=== PATIENT | female | born 1970 | race African-American/Black ===

== ENCOUNTER 2017-05-19 19:52 | Emergency (ER) | payer SELFPAY ==
[2017-05-19 20:24] LABS: URINE HCG POC HCG NEGATIVE (Negative)
[2017-05-19 20:28] LABS: ADD MAN DIFF? NO
[2017-05-19 20:38] LABS: BASO % 1 % (0-3); EOS # 0.1 x10^3/uL (0.0-0.7); EOS % 1 % (0-3); HEMATOCRIT 31.1 % (36.0-47.0); LYMPH # 1.7 x10^3/uL (1.0-4.8); LYMPH % 26 % (24-48); MEAN CORPUSCULAR HEMOGLOBIN 28 pg (25-35); MEAN CORPUSCULAR HGB CONC 32 g/dL (31-37); MEAN CORPUSCULAR VOLUME 88 fL (79-100); MONO # 0.6 x10^3/uL (0.0-1.1); MONO % 9 % (0-9); NEUT # 4.2 x10^3uL (1.8-7.7); NEUT % 64 % (31-73); PLATELET COUNT 340 x10^3/uL (140-400); RED BLOOD COUNT 3.53 x10^6/uL (3.50-5.40); RED CELL DISTRIBUTION WIDTH 20.9 % (11.5-14.5); WHITE BLOOD COUNT 6.5 x10^3/uL (4.0-11.0)
[2017-05-19 20:40] LABS: BARBITURATES NEG (NEG); BENZODIAZEPINES NEG (NEG); CANNABINOIDS NEG (NEG); COCAINE NEG (NEG); METHADONE NEG (NEG); OPIATES NEG (NEG); PHENCYCLIDINE NEG (NEG)
[2017-05-19 20:43] LABS: AMPHETAMINE/METHAMPHETAMINE POS (NEG); ETHANOL, URINE POS (NEG)
[2017-05-19 20:45] LABS: ETHANOL 251 mg/dL (0-10)
[2017-05-19 20:46] LABS: ANION GAP 11 (6-14); BLOOD UREA NITROGEN 9 mg/dL (7-20); BUN/CREATININE RATIO 18 (6-20); CALCIUM 7.6 mg/dL (8.5-10.1); CARBON DIOXIDE 28 mmol/L (21-32); CHLORIDE 101 mmol/L (98-107); CREATININE 0.5 mg/dL (0.6-1.0); GFR 162.2; GLUCOSE 143 mg/dL (70-99); POTASSIUM 3.5 mmol/L (3.5-5.1); SODIUM 140 mmol/L (136-145)
[2017-05-19 20:49] LABS: ALBUMIN 2.5 g/dL (3.4-5.0); ALBUMIN/GLOBULIN RATIO 0.5 (1.0-1.7); ALK PHOS 426 U/L (46-116); ALT (SGPT) 89 U/L (14-59); AST (SGOT) 528 U/L (15-37); TOTAL BILIRUBIN 1.4 mg/dL (0.2-1.0); TOTAL PROTEIN 7.6 g/dL (6.4-8.2)
[2017-05-19 20:59] LABS: TROPONINI < 0.017 ng/mL (0.000-0.055)
[2017-05-19 20:59] LABS: ANISOCYTOSIS MOD; PLT ESTIMATE ADEQUATE (ADEQUATE); TARGET CELLS MOD
[2017-05-19 21:59] LABS: INFLUENZA A PATIENT NEGATIVE (NEGATIVE); INFLUENZA B PATIENT NEGATIVE (NEGATIVE); OBC FLU VALID
== END 2017-05-19 22:19 | disposition home or self-care (01) ==
LOC: ER 22:19
DX: J40 Bronchitis, not specified as acute or chronic (principal); F10.20 Alcohol dependence, uncomplicated; R74.0 Nonspecific elevation of levels of transaminase and lactic acid dehydrogenase [LDH]; I10 Essential (primary) hypertension; Z72.0 Tobacco use
CPT/HCPCS: 36415; 71046; 80053; 80307; 81025; 84484; 85025; 87804; 87804-59; 93005; 99285-25; G0480

== ENCOUNTER 2018-03-23 16:32 | Emergency (ER) | payer SELFPAY ==
[~2018-03-23] VITALS: Ht 157.5 cm; Wt 74.8 kg
[~2018-03-23 16:32] MED LIST: AZIT250T PO; GABA-585 PO; HYDR12.58 PO; PANT40TA5 PO
[2018-03-23 16:42] VITALS: BP 147/86
--- NOTE | 2018-03-23 17:00 | PHYS DOC ---
Past Medical History Past Medical History: Hypertension, IBS, Pneumonia Past Surgical History: Other Additional Past Surgical Histo: KNEE, CYST REMOVED,tubal ligation Alcohol Use: Heavy Drug Use: None Adult General Chief Complaint Chief Complaint: COUGH HPI HPI Patient is a 47 year old female with history of hypertension, pneumonia, IBS, who presents today complaining of cough that began 4 days ago,a hoarse voice and a sore throat that began today. Patient denies any fever. She states she is a current smoker. Denies any chest pain or shortness of breath. Review of Systems Review of Systems Constitutional: Denies fever or chills [] Eyes: Denies change in visual acuity, redness, or eye pain [] HENT: Reports causes moist, sore throat. Denies nasal congestion Respiratory: Reports cough, denies shortness of breath [] Cardiovascular: No additional information not addressed in HPI [] GI: Denies abdominal pain, nausea, vomiting, bloody stools or diarrhea [] : Denies dysuria or hematuria [] Musculoskeletal: Denies back pain or joint pain [] Integument: Denies rash or skin lesions [] Neurologic: Denies headache, focal weakness or sensory changes [] All other systems were reviewed and found to be within normal limits, except as documented in this note. Allergies Allergies Allergies Coded Allergies Type Severity Reaction Last Updated Verified No Known Drug Allergies 03/28/16 No Physical Exam Physical Exam Constitutional: Well developed, well nourished, no acute distress, non-toxic appearance. [] HENT: Normocephalic, atraumatic, bilateral external ears normal, oropharynx moist, no oral exudates, nose normal. Airway is clear, hoarse voice. Eyes: PERRLA, EOMI, conjunctiva normal, no discharge. [] Neck: Normal range of motion, no tenderness, supple, no stridor. [] Cardiovascular:Heart rate regular rhythm, no murmur [] Lungs & Thorax: Bilateral breath sounds clear to auscultation [] Abdomen: Bowel sounds normal, soft, no tenderness, no masses, no pulsatile masses. [] Skin: Warm, dry, no erythema, no rash. [] Back: No tenderness, no CVA tenderness. [] Extremities: No tenderness, no cyanosis, no clubbing, ROM intact, no edema. [] Neurologic: Alert and oriented X 3, normal motor function, normal sensory function, no focal deficits noted. [] Psychologic: Affect normal, judgement normal, mood normal. [] Current Patient Data Vital Signs Vital Signs Date Time Temp Pulse Resp B/P (MAP) Pulse Ox O2 Delivery O2 Flow Rate FiO2 03/23/18 16:42 98.5 99 16 147/86 (106) 99 Room Air 98.5 EKG EKG [] Radiology/Procedures Radiology/Procedures [] Course & Med Decision Making Course & Med Decision Making Pertinent Labs and Imaging studies reviewed. (See chart for details) This is a 47-year-old female patient presenting to the ED today with cough for 4 days post voice and a sore throat since this morning. Negative rapid strep. Patient is a smoker, she was encouraged to consider smoking cessation. Chest x-ray interpreted by Dr. Silva was negative for any acute findings. Patient likely has bronchitis with laryngitis. He was discharged with instructions to rest her voice. Saltwater gargles. Prednisone and albuterol inhaler and Tessalon Perles. Follow-up with her own PCP in 1-2 weeks. Provided return precautions. Dragon Disclaimer Dragon Disclaimer This electronic medical record was generated, in whole or in part, using a voice recognition dictation system. Departure Departure Impression: Primary Impression: Acute bronchitis Additional Impressions: Laryngitis Viral pharyngitis Disposition: 01 HOME, SELF-CARE Condition: STABLE Referrals: NO PCP (PCP) Follow-up with your doctor in 1-2 weeks Patient Instructions: Bronchitis, Laryngitis, [id number], Smoking Cessation, Viral Pharyngitis Additional Instructions: You were evaluated in the emergency room and noted to have acute bronchitis and laryngitis. Rest your voice. Use Tylenol /Motrin for pain or fever. Use saltwater gargles. Consider smoking cessation. Take the rest of the prescribed medications as ordered. Scripts Albuterol Sulfate (VENTOLIN HFA INHALER) 18 Gm Hfa.aer.ad 2 PUFF INH Q4HRS for FOR ASTHMA, #1 INHALER 0 Refills Prov: MUTUNGASHA PNEUMATIC TUBE FITTER 03/23/18 Benzonatate (TESSALON PERLE) 100 Mg Capsule 1 CAP PO TID, #30 CAP Prov: MUTUNGA,SHA PNEUMATIC TUBE FITTER 03/23/18 Prednisone (PREDNISONE) 50 Mg Tablet 1 TAB PO DAILY, #5 TAB Prov: MUTUNGA,SHA PNEUMATIC TUBE FITTER 03/23/18 Problem Qualifiers Primary Impression: Acute bronchitis Bronchitis organism: unspecified organism Qualified Codes: J20.9 - Acute bronchitis, unspecified SHA BUTLER PNEUMATIC TUBE FITTER Mar 23, 2018 17:00
[2018-03-23] MEDS ORDERED: VENTOLIN HFA18 GM INH (18:00)
[2018-03-23] MEDS ORDERED: PRED50TA PO (18:00)
[2018-03-23] MEDS ORDERED: BENZ100C PO (18:00)
--- NOTE | 2018-03-24 07:58 | RAD ---
CHEST PA LATERAL Clinical indications: COUGH COMPARISON: May 19, 2017. Findings: No acute lung infiltrate or pleural effusion or pulmonary edema or lung mass or pneumothorax is seen. The heart size, pulmonary vasculature, mediastinum and both kylee are unremarkable. The osseous structures appear intact. Impression: No acute radiographic abnormality is seen. Electronically signed by: Laz Hollis MD (03/24/2018 7:54 AM) [facility]
== END 2018-03-23 18:08 | disposition home or self-care (01) ==
LOC: ER 16:32
DX: J20.9 Acute bronchitis, unspecified (principal); J02.8 Acute pharyngitis due to other specified organisms; B97.89 Other viral agents as the cause of diseases classified elsewhere; J04.0 Acute laryngitis; I10 Essential (primary) hypertension; F17.200 Nicotine dependence, unspecified, uncomplicated; F10.20 Alcohol dependence, uncomplicated; Z98.51 Tubal ligation status; Y90.9 Presence of alcohol in blood, level not specified
CPT/HCPCS: 71046; 87070; 87880; 96365; 96375; 99283; 99284-25

== ENCOUNTER 2018-11-04 19:32 | Inpatient (IN) | payer SELFPAY ==
[~2018-11-04] VITALS: Ht 157.5 cm; Wt 77.6 kg
[~2018-11-04 19:32] MED LIST changes: +BENZ100C PO; -PANT40TA5 PO; +PANT40TA77 PO; +PRED50TA PO; +VENTOLIN HFA18 GM INH
--- NOTE | 2018-11-04 19:53 | PHYS DOC ---
Past Medical History Past Medical History: Hypertension, IBS, Pneumonia Past Surgical History: Other Additional Past Surgical Histo: KNEE, CYST REMOVED,tubal ligation Alcohol Use: Occasionally Drug Use: None Adult General Chief Complaint Chief Complaint: CHEST PAIN-CARDIAC NATURE HPI HPI Patient is a 48-year-old female who presents with complaint of chest pain that started 2 days ago that she describes as sharp at times and just tightness at other times. She also has developed shortness of breath that started this morning. She rates that pain at a 5-6 out of 10. Patient states that symptoms are worsened with exertion. She does indicate that she has a history of blood clots in the past and states that she had been on blood thinners for 2 years. She denies being on any hormone therapy but does admit to tobacco use. She denies any nausea, vomiting or diaphoresis. She states that nothing is improving her symptoms.[] Review of Systems Review of Systems Constitutional: Denies fever or chills [] Respiratory: Complains of cough and shortness of breath [] Cardiovascular: No additional information not addressed in HPI [] GI: Denies abdominal pain, nausea, vomiting or diarrhea [] Integument: Denies rash or skin lesions [] Neurologic: Denies headache, focal weakness or sensory changes [] All other systems were reviewed and found to be within normal limits, except as documented in this note. Current Medications Current Medications Current Medications Medications (Trade) Dose Ordered Sig/[facility] Start Time Stop Time Status Last Admin Dose Admin Aspirin (Children'S Aspirin) 324 mg 1X ONCE 11/04/18 20:00 11/04/18 20:01 DC 11/04/18 19:55 324 MG Info (CONTRAST GIVEN -- Rx MONITORING) 1 each PRN DAILY PRN 11/04/18 21:00 11/06/18 20:59 Iohexol (Omnipaque 350 Mg/ml) 100 ml 1X ONCE 11/04/18 21:15 11/04/18 21:16 DC 11/04/18 21:31 100 ML Ketorolac Tromethamine (Toradol 30mg Vial) 30 mg 1X ONCE 11/04/18 20:00 11/04/18 20:01 DC 11/04/18 19:55 30 MG Magnesium Sulfate 50 ml @ 25 mls/hr 1X ONCE 11/04/18 21:00 11/04/18 22:59 DC 11/04/18 21:10 25 MLS/HR Sodium Chloride 1,000 ml @ 1,000 mls/hr Q1H 11/04/18 20:00 11/04/18 20:59 DC 11/04/18 19:55 1,000 MLS/HR Allergies Allergies Allergies Coded Allergies Type Severity Reaction Last Updated Verified No Known Drug Allergies 03/28/16 No Physical Exam Physical Exam Constitutional: Well developed, well nourished, no acute distress, non-toxic jeyson earance. [] HENT: Normocephalic, atraumatic, bilateral external ears normal, oropharynx moist, no oral exudates, nose normal. [] Eyes: PERRLA, EOMI, conjunctiva normal, no discharge. [] Neck: Normal range of motion, no tenderness, supple, no stridor. [] Cardiovascular: Tachycardic rate with regular rhythm[] Lungs & Thorax: Bilateral breath sounds clear to auscultation [] Abdomen: Bowel sounds normal, soft, no tenderness. [] Skin: Warm, dry, no erythema, no rash. [] Extremities: No tenderness, no cyanosis, no clubbing, ROM intact, no edema. [] Neurologic: Alert and oriented X 3, no focal deficits noted. [] Current Patient Data Vital Signs Vital Signs Date Time Temp Pulse Resp B/P (MAP) Pulse Ox O2 Delivery O2 Flow Rate FiO2 11/04/18 19:35 98.5 118 20 129/90 (103) 96 Room Air 98.5 Lab Values Laboratory Tests Test 11/04/18 19:45 11/04/18 20:10 White Blood Count 9.1 x10^3/uL (4.0-11.0) Red Blood Count 3.16 x10^6/uL (3.50-5.40) L Hemoglobin 10.0 g/dL (12.0-15.5) L Hematocrit 28.7 % (36.0-47.0) L Mean Corpuscular Volume 91 fL (79-100) Mean Corpuscular Hemoglobin 32 pg (25-35) Mean Corpuscular Hemoglobin Concent 35 g/dL (31-37) Red Cell Distribution Width 32.2 % (11.5-14.5) H Platelet Count 303 x10^3/uL (140-400) Neutrophils (%) (Auto) 33 % (31-73) Lymphocytes (%) (Auto) 63 % (24-48) H Monocytes (%) (Auto) 3 % (0-9) Eosinophils (%) (Auto) 0 % (0-3) Basophils (%) (Auto) 1 % (0-3) Neutrophils # (Auto) 3.0 x10^3/uL (1.8-7.7) Lymphocytes # (Auto) 5.7 x10^3/uL (1.0-4.8) H Monocytes # (Auto) 0.3 x10^3/uL (0.0-1.1) Eosinophils # (Auto) 0.0 x10^3/uL (0.0-0.7) Basophils # (Auto) 0.0 x10^3/uL (0.0-0.2) Segmented Neutrophils % 77 % (35-66) H Band Neutrophils % 1 % (0-9) Lymphocytes % 10 % (24-48) L Monocytes % 7 % (0-10) Eosinophils % 3 % (0-5) Basophils % 2 % (0-3) Nucleated Red Blood Cells 2 Toxic Granulation Slight Platelet Estimate Adequate (ADEQUATE) Platelet Clumps, EDTA Present Large Platelets Occ Anisocytosis Mod Target Cells Many Schistocytes Occ D-Dimer (Felipa) 3.32 ug/mlFEU (0.00-0.50) H Sodium Level 139 mmol/L (136-145) Potassium Level 3.2 mmol/L (3.5-5.1) L Chloride Level 98 mmol/L (98-107) Carbon Dioxide Level 25 mmol/L (21-32) Anion Gap 16 (6-14) H Blood Urea Nitrogen 4 mg/dL (7-20) L Creatinine 0.6 mg/dL (0.6-1.0) Estimated GFR (Cockcroft-Gault) 130.2 BUN/Creatinine Ratio 7 (6-20) Glucose Level 136 mg/dL (70-99) H Calcium Level 7.2 mg/dL (8.5-10.1) L Magnesium Level 0.9 mg/dL (1.8-2.4) L Total Bilirubin 5.4 mg/dL (0.2-1.0) H Aspartate Amino Transferase (AST) 299 U/L (15-37) H Alanine Aminotransferase (ALT) 39 U/L (14-59) Alkaline Phosphatase 680 U/L (46-116) H Troponin I Quantitative < 0.017 ng/mL (0.000-0.055) ZA-Fxo-X-Type Natriuretic Peptide 30 pg/mL (0-124) Total Protein 7.8 g/dL (6.4-8.2) Albumin 2.5 g/dL (3.4-5.0) L Albumin/Globulin Ratio 0.5 (1.0-1.7) L Lipase 33 U/L (73-393) L Urine Collection Type Unknown Urine Color Clinch Urine Clarity Cloudy Urine pH Urine Specific [place] Urine Protein mg/dL (NEG-TRACE) Urine Glucose (UA) mg/dL (NEG) Urine Ketones (Stick) mg/dL (NEG) Urine Blood (NEG) Urine Nitrite (NEG) Urine Bilirubin (NEG) Urine Urobilinogen Dipstick mg/dL (0.2 mg/dL) Urine Leukocyte Esterase (NEG) Urine RBC 0 /HPF (0-2) Urine WBC Occ /HPF (0-4) Urine Squamous Epithelial Cells Mod /LPF Urine Bacteria Few /HPF (0-FEW) Urine Mucus Mod /LPF Urine Trichomonas Present Laboratory Tests 11/04/18 19:45 Laboratory Tests 11/04/18 19:45 EKG EKG [] Interpretation Time: EKG demonstrates sinus tachycardia with rate of 116. Radiology/Procedures Radiology/Procedures [] Impressions: PROCEDURE: CT ANGIOGRAPHY CHEST INDICATION: Chest pain COMPARISON: None. TECHNIQUE: Axial CT images obtained through the chest. Intravenous contrast utilized. Angiogram 3D images processed per protocol. One or more of the following individualized dose reduction techniques were utilized for this examination: 1. Automated exposure control; 2. Adjustment of the mA and/or kV according to patient size; 3. Use of iterative reconstruction technique. FINDINGS: No evidence of pneumothorax. There are some scattered groundglass and nodular opacities within the lungs. Mild finding. Partially visualized liver is low density. Nonspecific but can be seen with fatty infiltration. This is a severe finding. There is also heterogenous enhancement of liver. Partially visualized colonic wall appears prominent at proximal descending colon although not distended. Patient motion limits exam. Borderline enlarged precarinal lymph node. Portion of a ascending thoracic aorta is obscured by motion but no aneurysm at visualized portions of the thoracic aorta. No central pulmonary embolus. Limited peripherally secondary to motion. Degenerative changes the spine with mild curvature. IMPRESSION: No central pulmonary embolus. Limited peripherally secondary to motion. There is some groundglass and nodular opacities bilaterally. Could be from small airway inflammation from infectious or inflammatory causes but a follow-up could be obtained in a few months to ensure no increase. This is a mild finding. Partially visualized liver appears enlarged and heterogenous. The hepatic parenchyma is very low attenuation. This can be seen with fatty infiltration but would also correlate for other possible causes such as hepatitis. A follow-up nonemergent CT or MRI liver protocol could BE obtained to further evaluate and ensure that there is not a hepatic mass contributing to this appearance. Portion of the colon is partially seen with the wall appearing mildly prominent. Could be secondary to a region of contraction unless the patient has symptoms in the region to suggest alternative cause such as colitis Electronically signed by: Bennett Schrader MD (11/04/2018 10:52 PM) [facility] DICTATED and SIGNED BY: BENNETT SCHRADER MD DATE: 11/04/182251 PROCEDURE: ABDOMEN LTD INDICATION : Chest pain COMPARISON: CT chest earlier same day TECHNIQUE: Multiple ultrasound images obtained through the abdomen in grayscale and color. FINDINGS: Liver: Echogenic appearance. Poor beam penetration therefore portions not well seen. Heterogenous. Gallbladder: Somewhat distended with wall measuring up to 6 mm. There is some internal echoes. IVC: Difficult visualization. Common Bile Duct: 5 mm Pancreas: Largely obscured by bowel gas. Right Kidney: No hydronephrosis. IMPRESSION: 1. Liver is echogenic. Nonspecific but can be seen with fatty infiltration. Heterogenous appearance of the liver with large portions not well seen secondary to poor beam penetration. Cannot exclude liver lesion on this exam. Gallbladder somewhat distended with wall thickening. This wall thickening could be reactive to adjacent hepatic disease, primary gallbladder inflammation or a systemic process such as hypoproteinemia. If there is clinical concern for acute cholecystitis and further information is desired nuclear hepatobiliary scan could BE obtained. Electronically signed by: Bennett Schrader MD (11/04/2018 11:11 PM) [facility] DICTATED and SIGNED BY: BENNETT SCHRADRE MD Course & Med Decision Making Course & Med Decision Making Pertinent Labs and Imaging studies reviewed. (See chart for details) [] Dragon Disclaimer Dragon Disclaimer This electronic medical record was generated, in whole or in part, using a voice recognition dictation system. Departure Departure Impression: Primary Impression: Chest pain Additional Impressions: Dyspnea Hyperbilirubinemia Elevated transaminase level Disposition: ADMITTED INPATIENT Admitting Physician: SUMEET Condition: IMPROVED Referrals: NO PCP (PCP) Problem Qualifiers Primary Impression: Chest pain Chest pain type: unspecified Qualified Codes: R07.9 - Chest pain, unspecified Additional Impressions: Dyspnea Dyspnea type: unspecified Qualified Codes: R06.00 - Dyspnea, unspecified MAURICE BROOKS Jr. DO Nov 04, 2018 19:53
[2018-11-04] MEDS ORDERED: ASPIRIN CHEWABLE 81 MG TABLET. PO ONE (20:00)
[2018-11-04] MEDS ORDERED: IV NORMAL SALINE 1000ML BAG 1,000 ML IV SCH ×2 (20:00→23:55)
[2018-11-04] MEDS ORDERED: KETOROLAC 30 MG/ML VIAL. IV ONE (20:00)
[2018-11-04 20:02] LABS: BASO % 1 % (0-3); EOS % 0 % (0-3); HEMATOCRIT 28.7 % (36.0-47.0); LYMPH # 5.7 x10^3/uL (1.0-4.8); LYMPH % 63 % (24-48); MEAN CORPUSCULAR HEMOGLOBIN 32 pg (25-35); MEAN CORPUSCULAR HGB CONC 35 g/dL (31-37); MEAN CORPUSCULAR VOLUME 91 fL (79-100); MONO # 0.3 x10^3/uL (0.0-1.1); MONO % 3 % (0-9); NEUT % 33 % (31-73); PLATELET COUNT 303 x10^3/uL (140-400); RED BLOOD COUNT 3.16 x10^6/uL (3.50-5.40); RED CELL DISTRIBUTION WIDTH 32.2 % (11.5-14.5); WHITE BLOOD COUNT 9.1 x10^3/uL (4.0-11.0)
[2018-11-04 20:17] LABS: CALCIUM 7.2 mg/dL (8.5-10.1); CREATININE 0.6 mg/dL (0.6-1.0); GFR 130.2; POTASSIUM 3.2 mmol/L (3.5-5.1)
[2018-11-04 20:22] LABS: CLARITY,URINE CLOUDY; COLOR,URINE ORANGE
[2018-11-04 20:23] LABS: ALBUMIN 2.5 g/dL (3.4-5.0); ALBUMIN/GLOBULIN RATIO 0.5 (1.0-1.7); MAGNESIUM 0.9 mg/dL (1.8-2.4); TOTAL BILIRUBIN 5.4 mg/dL (0.2-1.0); TOTAL PROTEIN 7.8 g/dL (6.4-8.2)
[2018-11-04 20:54] LABS: BACTERIA,URINE FEW /HPF (0-FEW); RBC,URINE 0 /HPF (0-2); SQUAMOUS EPITHELIAL CELL,UR MOD /LPF; WBC,URINE OCC /HPF (0-4)
[2018-11-04 20:55] LABS: TRICHOMONAS,URINE PRESENT
[2018-11-04] MEDS ORDERED: CONTRAST GIVEN. MC PRN (21:00)
[2018-11-04] MEDS ORDERED: MAGNESIUM SULFATE 2GM 50 ML IV ONE (21:00)
[2018-11-04 21:01] LABS: % BANDS 1 % (0-9); % BASOS 2 % (0-3); % EOS 3 % (0-5); % LYMPHS 10 % (24-48); % MONOS 7 % (0-10); % SEGS 77 % (35-66)
[2018-11-04 21:02] LABS: ANISOCYTOSIS MOD; NUCLEATED RBC 2
[2018-11-04 21:03] LABS: PLATELET CLUMP PRESENT; PLT ESTIMATE ADEQUATE (ADEQUATE); SCHISTOCYTES OCC; TARGET CELLS MANY; TOXIC GRANULATION SLIGHT
[2018-11-04] MEDS ORDERED: IOHEXOL 350 MG/ML 100 ML VIAL. IV ONE (21:15)
--- NOTE | 2018-11-04 22:55 | RAD ---
INDICATION: Chest pain COMPARISON: None. TECHNIQUE: Axial CT images obtained through the chest. Intravenous contrast utilized. Angiogram 3D images processed per protocol. One or more of the following individualized dose reduction techniques were utilized for this examination: 1. Automated exposure control; 2. Adjustment of the mA and/or kV according to patient size; 3. Use of iterative reconstruction technique. FINDINGS: No evidence of pneumothorax. There are some scattered groundglass and nodular opacities within the lungs. Mild finding. Partially visualized liver is low density. Nonspecific but can be seen with fatty infiltration. This is a severe finding. There is also heterogenous enhancement of liver. Partially visualized colonic wall appears prominent at proximal descending colon although not distended. Patient motion limits exam. Borderline enlarged precarinal lymph node. Portion of a ascending thoracic aorta is obscured by motion but no aneurysm at visualized portions of the thoracic aorta. No central pulmonary embolus. Limited peripherally secondary to motion. Degenerative changes the spine with mild curvature. IMPRESSION: No central pulmonary embolus. Limited peripherally secondary to motion. There is some groundglass and nodular opacities bilaterally. Could be from small airway inflammation from infectious or inflammatory causes but a follow-up could be obtained in a few months to ensure no increase. This is a mild finding. Partially visualized liver appears enlarged and heterogenous. The hepatic parenchyma is very low attenuation. This can be seen with fatty infiltration but would also correlate for other possible causes such as hepatitis. A follow-up nonemergent CT or MRI liver protocol could BE obtained to further evaluate and ensure that there is not a hepatic mass contributing to this appearance. Portion of the colon is partially seen with the wall appearing mildly prominent. Could be secondary to a region of contraction unless the patient has symptoms in the region to suggest alternative cause such as colitis Electronically signed by: Jl Schrader MD (11/04/2018 10:52 PM) [facility]
--- NOTE | 2018-11-04 23:14 | RAD ---
INDICATION : Chest pain COMPARISON: CT chest earlier same day TECHNIQUE: Multiple ultrasound images obtained through the abdomen in grayscale and color. FINDINGS: Liver: Echogenic appearance. Poor beam penetration therefore portions not well seen. Heterogenous. Gallbladder: Somewhat distended with wall measuring up to 6 mm. There is some internal echoes. IVC: Difficult visualization. Common Bile Duct: 5 mm Pancreas: Largely obscured by bowel gas. Right Kidney: No hydronephrosis. IMPRESSION: 1. Liver is echogenic. Nonspecific but can be seen with fatty infiltration. Heterogenous appearance of the liver with large portions not well seen secondary to poor beam penetration. Cannot exclude liver lesion on this exam. Gallbladder somewhat distended with wall thickening. This wall thickening could be reactive to adjacent hepatic disease, primary gallbladder inflammation or a systemic process such as hypoproteinemia. If there is clinical concern for acute cholecystitis and further information is desired nuclear hepatobiliary scan could BE obtained. Electronically signed by: Jl Schrader MD (11/04/2018 11:11 PM) [facility]
[2018-11-05] VITALS (7 sets, daily range): BP systolic 100–145; BP diastolic 63–95
[2018-11-05] MEDS ORDERED: NITROGLYCERIN SUBLINGUAL 0.4 MG BOTTLE OF 25. SL PRN
[2018-11-05] MEDS ORDERED: ONDANSETRON PF 4 MG/2 ML VIAL. IV PRN
[2018-11-05] MEDS: MORPHINE SULFATE 4 MG/ML VIAL. IV PRN ×7 (00:32→23:17)
[2018-11-05] MEDS ORDERED: SENN8.6T99 PO (01:32)
[2018-11-05] MEDS ORDERED: IBUP-1027 PO (01:32)
[2018-11-05] MEDS ORDERED: SIME62.5 PO (01:32)
[2018-11-05] MEDS ORDERED: CALC300T5 PO (01:32)
--- NOTE | 2018-11-05 05:59 | EKG ---
[facility] [address] [place] [address] Test Date: 2018-11-04 Test Time: 19:37:14 Pat Name: KIMBERLY DOZIER Department: Room: Gender: F Cruise Coordinator: : 1970 Requested By: MAURICE BROOKS Order Number: [id number] Reading MD: Measurements Intervals [place] Rate: 116 P: 56 W[place]: 118 QRS: 26 QRSD: 90 T: 60 QT: 342 QTc: 482 Interpretive Statements SINUS TACHYCARDIA CONSIDER RIGHT VENTRICULAR HYPERTROPHY QRS(T) CONTOUR ABNORMALITY CONSIDER ANTEROLATERAL MYOCARDIAL DAMAGE POSSIBLY ABNORMAL ECG RI6.01 Unconfirmed report No previous ECG available for comparison
[2018-11-05 06:16] LABS: BASO % 0 % (0-3); EOS % 0 % (0-3); HEMATOCRIT 25.5 % (36.0-47.0); HEMOGLOBIN 8.6 g/dL (12.0-15.5); LYMPH # 4.6 x10^3/uL (1.0-4.8); LYMPH % 49 % (24-48); MEAN CORPUSCULAR HEMOGLOBIN 31 pg (25-35); MEAN CORPUSCULAR HGB CONC 34 g/dL (31-37); MEAN CORPUSCULAR VOLUME 92 fL (79-100); MONO # 0.6 x10^3/uL (0.0-1.1); MONO % 7 % (0-9); NEUT # 4.2 x10^3/uL (1.8-7.7); NEUT % 44 % (31-73); PLATELET COUNT 247 x10^3/uL (140-400); RED BLOOD COUNT 2.77 x10^6/uL (3.50-5.40); RED CELL DISTRIBUTION WIDTH 33.4 % (11.5-14.5); WHITE BLOOD COUNT 9.4 x10^3/uL (4.0-11.0)
[2018-11-05 06:26] LABS: CALCIUM 6.8 mg/dL (8.5-10.1); CREATININE 0.5 mg/dL (0.6-1.0); GFR 160.7; POTASSIUM 3.3 mmol/L (3.5-5.1)
[2018-11-05] MEDS: IPRATRPIUM/ALBUTEROL 0.5/2.5MG 3 ML NEBU. NEB SCH ×4 (07:33→20:09)
--- NOTE | 2018-11-05 09:02 | RAD ---
Examination: PORTABLE CHEST 1V History: Chest pain Comparison/Correlation: 03/23/2018 two-view chest x-ray exam Findings: Portable upright frontal view chest was obtained. Heart size and pulmonary vasculature are normal. No infiltrate or pleural effusion. Bony structures are unremarkable. No pneumothorax. Impression: No active disease. Electronically signed by: Brandt Coleman MD (11/05/2018 8:59 AM) [id number]
[2018-11-05 09:38] LABS: % EOS 1 % (0-5); % LYMPHS 15 % (24-48); % MONOS 5 % (0-10); % SEGS 79 % (35-66); NUCLEATED RBC 1; PLT ESTIMATE ADEQUATE (ADEQUATE)
[2018-11-05 09:39] LABS: ANISOCYTOSIS PRESENT; POLYCHROMASIA PRESENT; TARGET CELLS MANY
--- NOTE | 2018-11-05 09:43 | PDOC2 ---
CARDIAC CONSULT DATE OF CONSULT Date of Consult DATE: 11/05/18 TIME: 09:11 REASON FOR CONSULT Reason for Consult: Chest pain REFERRING PHYSICIAN Referring Physician: Jennifer SOURCE Source: Chart review, Patient HISTORY OF PRESENT ILLNESS HISTORY OF PRESENT ILLNESS This is a pleasant 48 yo female admitted for complains of chest pain and abdominal pain. Her abdominal pain is mainly to her right side and tender to touch and has been vomting intermittently in the last 2 weeks. She does get heartburn almost everyday and has been taking rolaids intermittently. In the last 4 days she has been coughing more and eventually started having white phlegm with some SOA. No recorded fever but chills at times. Reports eventu tanisha started having midchest tightness and wheezing. Her voice is hoarse. Same thing happened to her 2 months ago and she was sent home with albuterol puffer. No prior diarrhea and no black stools and take intermittent NSAIDs. Has hx of anemia but no hx of PUD, bleeding or clotting disorders. No recent falls injury no CAD, VTE, asthma, COPD, no passing out. She had possible seizure 2 yrs ago medicated for only 30 days. Occasional ETOH use but smokes tobacco. PAST MEDICAL HISTORY Cardiovascular: No pertinent hx Pulmonary: No pertinent hx CENTRAL NERVOUS SYSTEM: Seizure GI: GERD Heme/Onc: Anemia NOS Hepatobiliary: No pertinent hx Psych: No pertinent hx Musculoskeletal: Osteoarthritis Rheumatologic: No pertinent hx Infectious disease: No pertinent hx ENT: Allergic Rhinitis Renal/: UTI Endocrine: No pertinent hx Dermatology: No pertinent hx PAST SURGICAL HISTORY Past Surgical History: Arthroscopy (right knee), Tubal Ligation, Other (cyst removal to urinary tract and rectal cyst removal?) FAMILY HISTORY Family History noncontributory to CV SOCIAL HISTORY Smoke: <1 pack per day ALCOHOL: none Drugs: None Lives: with Family (sister) CURRENT MEDICATIONS CURRENT MEDICATIONS Current Medications Medications (Trade) Dose Ordered Sig/Francisco Route PRN Reason Start Time Stop Time Status Last Admin Dose Admin Aspirin (Children'S Aspirin) 324 mg 1X ONCE PO 11/04/18 20:00 11/04/18 20:01 DC 11/04/18 19:55 Sodium Chloride 1,000 ml @ 1,000 mls/hr Q1H IV 11/04/18 20:00 11/04/18 20:59 DC 11/04/18 19:55 Ketorolac Tromethamine (Toradol 30mg Vial) 30 mg 1X ONCE IV 11/04/18 20:00 11/04/18 20:01 DC 11/04/18 19:55 Magnesium Sulfate 50 ml @ 25 mls/hr 1X ONCE IV 11/04/18 21:00 11/04/18 22:59 DC 11/04/18 21:10 Iohexol (Omnipaque 350 Mg/ml) 100 ml 1X ONCE IV 11/04/18 21:15 11/04/18 21:16 DC 11/04/18 21:31 Morphine Sulfate (Morphine Sulfate) 4 mg PRN Q2HR PRN IV PAIN 11/05/18 00:00 11/05/18 23:59 11/05/18 08:02 Sodium Chloride 1,000 ml @ 100 mls/hr Q10H IV 11/04/18 23:55 11/05/18 23:54 11/05/18 03:32 Albuterol/ Ipratropium (Duoneb) 3 ml RTQID NEB 11/05/18 08:00 11/06/18 07:59 11/05/18 07:33 ALLERGIES ALLERGIES: Coded Allergies: No Known Drug Allergies (Unverified , 03/28/16) ROS Review of System 14 point ROS evaluated with pertinent positives noted per HPI PHYSICAL EXAM General: Alert, Oriented X3, Cooperative, No acute distress HEENT: Atraumatic, Mucous membr. moist/pink, Other (dysphonia) Lungs: Clear to auscultation, Normal air movement Heart: Regular rate (SR), Normal S1, Normal S2 Abdomen: Soft, Other (RUQ tenderness with palpation) Extremities: No cyanosis, No edema Skin: No breakdown, No significant lesion Neuro: Normal speech, Sensation intact Psych/Mental Status: Mental status NL, Mood NL MUSCULOSKELETAL: Osteoarthritic changes both hands VITALS/I&O VITALS/I&O: Vital Signs Date Time Temp Pulse Resp B/P (MAP) Pulse Ox O2 Delivery O2 Flow Rate FiO2 11/05/18 08:02 92 Room Air 11/05/18 07:00 98.5 104 18 100/68 (79) 1.0 98.5 I & O 11/04/18 11/04/18 11/05/18 14:59 22:59 06:59 Intake Total 1050 ml Output Total 200 ml Balance 850 ml LABS Lab: Laboratory Tests Test 11/04/18 19:45 11/04/18 20:10 11/05/18 02:40 11/05/18 05:45 White Blood Count 9.1 x10^3/uL (4.0-11.0) 9.4 x10^3/uL (4.0-11.0) Red Blood Count 3.16 x10^6/uL (3.50-5.40) L 2.77 x10^6/uL (3.50-5.40) L Hemoglobin 10.0 g/dL (12.0-15.5) L 8.6 g/dL (12.0-15.5) L Hematocrit 28.7 % (36.0-47.0) L 25.5 % (36.0-47.0) L Mean Corpuscular Volume 91 fL (79-100) 92 fL (79-100) Mean Corpuscular Hemoglobin 32 pg (25-35) 31 pg (25-35) Mean Corpuscular Hemoglobin Concent 35 g/dL (31-37) 34 g/dL (31-37) Red Cell Distribution Width 32.2 % (11.5-14.5) H 33.4 % (11.5-14.5) H Platelet Count 303 x10^3/uL (140-400) 247 x10^3/uL (140-400) Neutrophils (%) (Auto) 33 % (31-73) 44 % (31-73) Lymphocytes (%) (Auto) 63 % (24-48) H 49 % (24-48) H Monocytes (%) (Auto) 3 % (0-9) 7 % (0-9) Eosinophils (%) (Auto) 0 % (0-3) 0 % (0-3) Basophils (%) (Auto) 1 % (0-3) 0 % (0-3) Neutrophils # (Auto) 3.0 x10^3/uL (1.8-7.7) 4.2 x10^3/uL (1.8-7.7) Lymphocytes # (Auto) 5.7 x10^3/uL (1.0-4.8) H 4.6 x10^3/uL (1.0-4.8) Monocytes # (Auto) 0.3 x10^3/uL (0.0-1.1) 0.6 x10^3/uL (0.0-1.1) Eosinophils # (Auto) 0.0 x10^3/uL (0.0-0.7) 0.0 x10^3/uL (0.0-0.7) Basophils # (Auto) 0.0 x10^3/uL (0.0-0.2) 0.0 x10^3/uL (0.0-0.2) Segmented Neutrophils % 77 % (35-66) H Band Neutrophils % 1 % (0-9) Lymphocytes % 10 % (24-48) L Monocytes % 7 % (0-10) Eosinophils % 3 % (0-5) Basophils % 2 % (0-3) Nucleated Red Blood Cells 2 Toxic Granulation Slight Platelet Estimate Adequate (ADEQUATE) Pending Platelet Clumps, EDTA Present Large Platelets Occ Anisocytosis Mod Target Cells Many Schistocytes Occ D-Dimer (Felipa) 3.32 ug/mlFEU (0.00-0.50) H Sodium Level 139 mmol/L (136-145) 142 mmol/L (136-145) Potassium Level 3.2 mmol/L (3.5-5.1) L 3.3 mmol/L (3.5-5.1) L Chloride Level 98 mmol/L (98-107) 102 mmol/L (98-107) Carbon Dioxide Level 25 mmol/L (21-32) 24 mmol/L (21-32) Anion Gap 16 (6-14) H 16 (6-14) H Blood Urea Nitrogen 4 mg/dL (7-20) L 4 mg/dL (7-20) L Creatinine 0.6 mg/dL (0.6-1.0) 0.5 mg/dL (0.6-1.0) L Estimated GFR (Cockcroft-Gault) 130.2 160.7 BUN/Creatinine Ratio 7 (6-20) Glucose Level 136 mg/dL (70-99) H 88 mg/dL (70-99) Calcium Level 7.2 mg/dL (8.5-10.1) L 6.8 mg/dL (8.5-10.1) L Magnesium Level 0.9 mg/dL (1.8-2.4) L Total Bilirubin 5.4 mg/dL (0.2-1.0) H Aspartate Amino Transferase (AST) 299 U/L (15-37) H Alanine Aminotransferase (ALT) 39 U/L (14-59) Alkaline Phosphatase 680 U/L (46-116) H Troponin I Quantitative < 0.017 ng/mL (0.000-0.055) < 0.017 ng/mL (0.000-0.055) < 0.017 ng/mL (0.000-0.055) OE-Nkw-J-Type Natriuretic Peptide 30 pg/mL (0-124) Total Protein 7.8 g/dL (6.4-8.2) Albumin 2.5 g/dL (3.4-5.0) L Albumin/Globulin Ratio 0.5 (1.0-1.7) L Lipase 33 U/L (73-393) L Urine Collection Type Unknown Urine Color [place] Urine Clarity Cloudy Urine pH Urine Specific [place] Urine Protein mg/dL (NEG-TRACE) Urine Glucose (UA) mg/dL (NEG) Urine Ketones (Stick) mg/dL (NEG) Urine Blood (NEG) Urine Nitrite (NEG) Urine Bilirubin (NEG) Urine Urobilinogen Dipstick mg/dL (0.2 mg/dL) Urine Leukocyte Esterase (NEG) Urine RBC 0 /HPF (0-2) Urine WBC Occ /HPF (0-4) Urine Squamous Epithelial Cells Mod /LPF Urine Bacteria Few /HPF (0-FEW) Urine Mucus Mod /LPF Urine Trichomonas Present Laboratory Tests 11/04/18 19:45 11/05/18 05:45 Laboratory Tests 11/04/18 19:45 11/05/18 05:45 ASSESSMENT/PLAN ASSESSMENT/PLAN 1. Chest pain: suspect from cough/bronchospasm and GI. Trops nml, no acute changes to EKG 2. Suspect adult onset asthma with exacerbation with concurrent dysphonia: likely exacerbated by uncontrolled GERD 3. Abdominal pain with transaminitis with possible biliary component 4. Normocytic anemia 5. Obesity 6. Hypomagnesemia/hypokalemia: likely from vomiting spells. 7. Tobaccoism Recommendations 1. GI consult. 2. TTE, TSH, lipids 3. Start on PPI. Replace Mg and K. 4. Asthma mgmt per PCP 5. Smoking cessation JUDITH JANE APRN Nov 05, 2018 09:42
[2018-11-05 10:55] LABS: PROTHROMBIN TIME PATIENT 15.9 SEC (11.7-14.0)
[2018-11-05] MEDS ORDERED: MAGNESIUM SULFATE 2GM 50 ML IV ONE (11:00)
--- NOTE | 2018-11-05 11:42 | CARD ---
MR#: [id number] Date of Study: 11/05/2018 Ordering Physician: JUDITH JANE, Referring Physician: KARL GEE Tech: Maddie Laboy RDCS APPROVED REPORT EXAM: Two-dimensional and M-mode echocardiogram with Doppler and color Doppler. Other Information Quality : Good INDICATION Chest Pain 2D DIMENSIONS RVDd2.9 (2.9-3.5cm)Left Atrium(2D)2.7 (1.6-4.0cm) IVSd1.1 (0.7-1.1cm)Aortic Root(2D)2.8 (2.0-3.7cm) LVDd4.1 (3.9-5.9cm)LVOT Diameter2.0 (1.8-2.4cm) PWd1.1 (0.7-1.1cm)LVDs3.3 (2.5-4.0cm) FS (%) 30.0 %SV28.1 ml LVEF(%)60.0 (>50%) Aortic Valve AoV Peak Itz.142.6cm/sAoV VTI25.9cm AO Peak GR.8.1mmHgLVOT Peak Itz.131.4cm/s LVOT VTI 21.91cmAO Mean GR.5mmHg ANTONIA (VMAX)3.90vq5QGH (VTI)2.78cm2 Mitral Valve MV E Ofasfyps90.0cm/sMV DECEL [id number] MV A Cgydjaeb11.3cm/sMV DZT68ii E/A Ratio0.8MVA (PHT)2.68cm2 TDI E/Lateral E'10.9E/Medial E'10.3 Tricuspid Valve TR P. Zfbsrhjv385lo/sRAP DVLXQDCK7wkHg TR Peak Gr.93jnMaRTNY68inBi Pulmonary Vein D2 Khmqrdbz01.9cm/s LEFT VENTRICLE The left ventricle is normal size. There is normal left ventricular wall thickness. The left ventricu lar systolic function is normal and the ejection fraction is within normal range. The Ejection Fracti on is 55-60%. There is normal LV segmental wall motion. Transmitral Doppler flow pattern is Grade I-a bnormal relaxation pattern. RIGHT VENTRICLE The right ventricle is normal size. The right ventricular systolic function is normal. ATRIA The left atrium size is normal. The right atrium size is normal. The interatrial septum is intact wit h no evidence for an atrial septal defect or patent foramen ovale as noted on 2-D or Doppler imaging. AORTIC VALVE The aortic valve is calcified but opens well. Doppler and Color Flow revealed no significant aortic r egurgitation. There is no significant aortic valvular stenosis. MITRAL VALVE The mitral valve is normal in structure and function. There is no evidence of mitral valve prolapse. There is no mitral valve stenosis. Doppler and Color-flow revealed mild mitral regurgitation. TRICUSPID VALVE The tricuspid valve is normal in structure and function. Doppler and Color Flow revealed trace tricus pid regurgitation. The PA pressure was estimated at 37 mmHg. There is no tricuspid valve stenosis. PULMONIC VALVE The pulmonic valve is not well visualized. Doppler and Color Flow revealed no pulmonic valvular regur gitation. There is no pulmonic valvular stenosis. GREAT VESSELS The aortic root is normal in size. The ascending aorta is normal in size. The IVC is normal in size a nd collapses >50% with inspiration. PERICARDIAL EFFUSION There is no evidence of significant pericardial effusion. Critical Notification Critical Value: No <Conclusion> The left ventricular systolic function is normal and the ejection fraction is within normal range. Th e Ejection Fraction is 55-60%. There is normal LV segmental wall motion. Signed by : Kushal Heart, Electronically Approved : 11/05/2018 11:41:56
--- NOTE | 2018-11-05 12:41 | PDOC2 ---
GI CONSULT Reason For Consult: abdominal pain, abnormal LFTs HPI: HPI: 48 y/o female who has had a cold for 2 weeks, has been coughing a lot, and is now hoarse. Has also had pressure across the front of her chest x 4 days. H/o heartburn w/ use of Tums PRN. No dysphagia. Sometimes has coughed so hard she also vomits. No hematemesis. Has had intermittent abd pain and swelling for 2 years - has been worse for 1 year. Thinks associated with missing periods. "Swelling" causes shortness of breath and resolves spontaneously. H/o IBS-C w/ typical bowel pattern of 3 stools weekly. No hematochezia or melena. Appetite stable w/ >10 pound weight gain. Labs note normal WBC, Hgb 10 (8.6 today) w/ MCV 91, RDW 32.2, INR 1.3, normal plt, normal BUN. Bili 5.4, AST 299, ALT 39, Alk Phos 680, normal lipase. D- dimer was also elevated. Imaging notes no PE, possible fatty liver, CBD 5mm, somewhat distended gallbladder w/ wall thickening. Previous EGD and colonoscopy at [facility] in 2017 - thinks performed while she was drinking a lot and depressed, recalls no significant findings. Has been told her liver "was high" in the past. No GB, pancreas, or PUD history. Takes ibuprofen PRN. Previous labs here note anemia, elevated LFTs, negative Hepatitis profile, negative ASMITA, and normal AMA. Hepatic steatosis, hepatomegaly, CBD 6mm, and no rmal GB on US in 2016. PMH: PMH: HTN, seizure (?withdrawal), UTI, allergic rhinitis, LLE DVT, depression right knee arthroscopy, tubal ligation, cyst removals from urethra and rectum (both benign) FH: Family History: Cancer (aunt - breast), Other (liver - alcoholic cirrhosis) Social History: Smoke: <1 pack per day ALCOHOL: other (h/o intermittent heavy alcohol use - currently 12 wine coolers weekly - alcohol level was 251 in 2018) Drugs: Crystal meth (positive in 2018) ROS: GEN: Denies fevers, chills, sweats HEENT: +hoarseness CV: +chest pain RESP: +SOA +cough GI: Per HPI : Denies hematuria, dysuria ENDO: +weight gain NEURO: Denies confusion, dizziness MSK: Denies weakness, joint pain/swelling SKIN: Denies jaundice, pruritus Vitals: Vitals: Vital Signs Date Time Temp Pulse Resp B/P (MAP) Pulse Ox O2 Delivery O2 Flow Rate FiO2 11/05/18 11:00 98.6 101 18 129/76 (93) 95 Room Air 1.0 98.6 Labs: Labs: Laboratory Tests Test 11/04/18 19:45 11/04/18 20:10 11/05/18 02:40 11/05/18 05:45 White Blood Count 9.1 x10^3/uL (4.0-11.0) 9.4 x10^3/uL (4.0-11.0) Red Blood Count 3.16 x10^6/uL (3.50-5.40) 2.77 x10^6/uL (3.50-5.40) Hemoglobin 10.0 g/dL (12.0-15.5) 8.6 g/dL (12.0-15.5) Hematocrit 28.7 % (36.0-47.0) 25.5 % (36.0-47.0) Mean Corpuscular Volume 91 fL (79-100) 92 fL (79-100) Mean Corpuscular Hemoglobin 32 pg (25-35) 31 pg (25-35) Mean Corpuscular Hemoglobin Concent 35 g/dL (31-37) 34 g/dL (31-37) Red Cell Distribution Width 32.2 % (11.5-14.5) 33.4 % (11.5-14.5) Platelet Count 303 x10^3/uL (140-400) 247 x10^3/uL (140-400) Neutrophils (%) (Auto) 33 % (31-73) 44 % (31-73) Lymphocytes (%) (Auto) 63 % (24-48) 49 % (24-48) Monocytes (%) (Auto) 3 % (0-9) 7 % (0-9) Eosinophils (%) (Auto) 0 % (0-3) 0 % (0-3) Basophils (%) (Auto) 1 % (0-3) 0 % (0-3) Neutrophils # (Auto) 3.0 x10^3/uL (1.8-7.7) 4.2 x10^3/uL (1.8-7.7) Lymphocytes # (Auto) 5.7 x10^3/uL (1.0-4.8) 4.6 x10^3/uL (1.0-4.8) Monocytes # (Auto) 0.3 x10^3/uL (0.0-1.1) 0.6 x10^3/uL (0.0-1.1) Eosinophils # (Auto) 0.0 x10^3/uL (0.0-0.7) 0.0 x10^3/uL (0.0-0.7) Basophils # (Auto) 0.0 x10^3/uL (0.0-0.2) 0.0 x10^3/uL (0.0-0.2) Segmented Neutrophils % 77 % (35-66) 79 % (35-66) Band Neutrophils % 1 % (0-9) Lymphocytes % 10 % (24-48) 15 % (24-48) Monocytes % 7 % (0-10) 5 % (0-10) Eosinophils % 3 % (0-5) 1 % (0-5) Basophils % 2 % (0-3) Nucleated Red Blood Cells 2 1 Toxic Granulation Slight Platelet Estimate Adequate (ADEQUATE) Adequate (ADEQUATE) Platelet Clumps, EDTA Present Large Platelets Occ Anisocytosis Mod Present Target Cells Many Many Schistocytes Occ D-Dimer (Felipa) 3.32 ug/mlFEU (0.00-0.50) Sodium Level 139 mmol/L (136-145) 142 mmol/L (136-145) Potassium Level 3.2 mmol/L (3.5-5.1) 3.3 mmol/L (3.5-5.1) Chloride Level 98 mmol/L (98-107) 102 mmol/L (98-107) Carbon Dioxide Level 25 mmol/L (21-32) 24 mmol/L (21-32) Anion Gap 16 (6-14) 16 (6-14) Blood Urea Nitrogen 4 mg/dL (7-20) 4 mg/dL (7-20) Creatinine 0.6 mg/dL (0.6-1.0) 0.5 mg/dL (0.6-1.0) Estimated GFR (Cockcroft-Gault) 130.2 160.7 BUN/Creatinine Ratio 7 (6-20) Glucose Level 136 mg/dL (70-99) 88 mg/dL (70-99) Calcium Level 7.2 mg/dL (8.5-10.1) 6.8 mg/dL (8.5-10.1) Magnesium Level 0.9 mg/dL (1.8-2.4) 1.5 mg/dL (1.8-2.4) Total Bilirubin 5.4 mg/dL (0.2-1.0) Aspartate Amino Transf (AST/SGOT) 299 U/L (15-37) Alanine Aminotransferase (ALT/SGPT) 39 U/L (14-59) Alkaline Phosphatase 680 U/L (46-116) Troponin I Quantitative < 0.017 ng/mL (0.000-0.055) < 0.017 ng/mL (0.000-0.055) < 0.017 ng/mL (0.000-0.055) GA-Iea-K-Type Natriuretic Peptide 30 pg/mL (0-124) Total Protein 7.8 g/dL (6.4-8.2) Albumin 2.5 g/dL (3.4-5.0) Albumin/Globulin Ratio 0.5 (1.0-1.7) Lipase 33 U/L (73-393) Urine Collection Type Unknown Urine Color [place] Urine Clarity Cloudy Urine pH Urine Specific [place] Urine Protein mg/dL (NEG-TRACE) Urine Glucose (UA) mg/dL (NEG) Urine Ketones (Stick) mg/dL (NEG) Urine Blood (NEG) Urine Nitrite (NEG) Urine Bilirubin (NEG) Urine Urobilinogen Dipstick mg/dL (0.2 mg/dL) Urine Leukocyte Esterase (NEG) Urine RBC 0 /HPF (0-2) Urine WBC Occ /HPF (0-4) Urine Squamous Epithelial Cells Mod /LPF Urine Bacteria Few /HPF (0-FEW) Urine Mucus Mod /LPF Urine Trichomonas Present Polychromasia Present Macrocytosis Present Prothrombin Time 15.9 SEC (11.7-14.0) Prothromb Time International Ratio 1.3 (0.8-1.1) Allergies: Coded Allergies: No Known Drug Allergies (Unverified , 03/28/16) Medications: Current Medications Medications (Trade) Dose Ordered Sig/Francisco Route PRN Reason Start Time Stop Time Status Last Admin Dose Admin Aspirin (Children'S Aspirin) 324 mg 1X ONCE PO 11/04/18 20:00 11/04/18 20:01 DC 11/04/18 19:55 Sodium Chloride 1,000 ml @ 1,000 mls/hr Q1H IV 11/04/18 20:00 11/04/18 20:59 DC 11/04/18 19:55 Ketorolac Tromethamine (Toradol 30mg Vial) 30 mg 1X ONCE IV 11/04/18 20:00 11/04/18 20:01 DC 11/04/18 19:55 Magnesium Sulfate 50 ml @ 25 mls/hr 1X ONCE IV 11/04/18 21:00 11/04/18 22:59 DC 11/04/18 21:10 Iohexol (Omnipaque 350 Mg/ml) 100 ml 1X ONCE IV 11/04/18 21:15 11/04/18 21:16 DC 11/04/18 21:31 Morphine Sulfate (Morphine Sulfate) 4 mg PRN Q2HR PRN IV PAIN 11/05/18 00:00 11/05/18 23:59 11/05/18 10:26 Sodium Chloride 1,000 ml @ 100 mls/hr Q10H IV 11/04/18 23:55 11/05/18 11:09 DC 11/05/18 03:32 Albuterol/ Ipratropium (Duoneb) 3 ml RTQID NEB 11/05/18 08:00 11/06/18 07:59 11/05/18 10:53 Magnesium Sulfate 50 ml @ 25 mls/hr 1X ONCE IV 11/05/18 11:00 11/05/18 12:59 11/05/18 11:04 Imaging: Imaging: CXR Impression: No active disease. Chest CTA IMPRESSION: No central pulmonary embolus. Limited peripherally secondary to motion. There is some groundglass and nodular opacities bilaterally. Could be from small airway inflammation from infectious or inflammatory causes but a follow-up could be obtained in a few months to ensure no increase. This is a mild finding. Partially visualized liver appears enlarged and heterogenous. The hepatic parenchyma is very low attenuation. This can be seen with fatty infiltration but would also correlate for other possible causes such as hepatitis. A follow-up nonemergent CT or MRI liver protocol could be obtained to further evaluate and ensure that there is not a hepatic mass contributing to this appearance. Portion of the colon is partially seen with the wall appearing mildly prominent. Could be secondary to a region of contraction unless the patient has symptoms in the region to suggest alternative cause such as colitis. Abd US Liver: Echogenic appearance. Poor beam penetration therefore portions not well seen. Heterogenous. Gallbladder: Somewhat distended with wall measuring up to 6 mm. There is some internal echoes. IVC: Difficult visualization. Common Bile Duct: 5 mm Pancreas: Largely obscured by bowel gas. Right Kidney: No hydronephrosis. IMPRESSION: Liver is echogenic. Nonspecific but can be seen with fatty infiltration. Heterogenous appearance of the liver with large portions not well seen secondary to poor beam penetration. Cannot exclude liver lesion on this exam. Gallbladder somewhat distended with wall thickening. This wall thickening could be reactive to adjacent hepatic disease, primary gallbladder inflammation or a systemic process such as hypoproteinemia. If there is clinical concern for acute cholecystitis and further information is desired nuclear hepatobiliary scan could BE obtained. Echocardiogram <Conclusion> The left ventricular systolic function is normal and the ejection fraction is within normal range. The Ejection Fraction is 55-60%. There is normal LV segmental wall motion. PE: GEN: NAD - was sleeping, I startled her when I called her name HEENT: very hoarse LUNGS: CTAB HEART: RRR ABD: NABS, S/ND/NT EXTREMITY: No edema SKIN: No rashes, no jaundice NEURO/PSYCH: A & O �3 A/P: A/P: Chest pressure, coughing/vomiting, hoarseness Chronic/intermittent abd pain/bloating w/ SOA and irregular periods Chronic anemia Abnormal LFTs - history of same but worse now; Hep panel, ASMITA, AMA all negative/normal in 2016 Hepatic steatosis, h/o heavy alcohol use, ?GB distention/wall thickening Heartburn - takes Tums, reports normal EGD @ [facility] in 2017 CRC screen - reports normal colonoscopy @ [facility] in 2017 H/o IBS-C H/o "rectal cyst" removal -- Check anemia parameters and tox screen (+meth in 2016). Add PPI. Will review recs for additional abd imaging w/ Dr. Pak. Will request records of previous 'scopes from [facility]. ?pelvic imaging/RESPIRATORY THERAPY DIRECTOR consult JUANCHO PATRICIO Nov 05, 2018 12:41
[2018-11-05 14:26] LABS: CLARITY,URINE CLEAR; COLOR,URINE ORANGE
[2018-11-05 14:36] LABS: BACTERIA,URINE 0 /HPF (0-FEW); RBC,URINE 0 /HPF (0-2); SQUAMOUS EPITHELIAL CELL,UR FEW /LPF; WBC,URINE RARE /HPF (0-4)
[2018-11-05 14:39] LABS: BARBITURATES NEG (NEG); BENZODIAZEPINES NEG (NEG); CANNABINOIDS NEG (NEG); COCAINE NEG (NEG); METHADONE NEG (NEG); OPIATES POS (NEG); PHENCYCLIDINE NEG (NEG)
[2018-11-05 14:46] LABS: AMPHETAMINE/METHAMPHETAMINE NEG (NEG)
--- NOTE | 2018-11-05 15:28 | HP ---
ADMIT DATE: 11/04/2018 CHIEF COMPLAINT: Chest pain. HISTORY OF PRESENT ILLNESS: The patient is a pleasant 48-year-old female who presented with chest pain. It has been occurring off and on for a couple of weeks. She is tender on the right side. She had some coughing in the past 4 days with productive phlegm. I discussed the case with ER physician. We are going to admit the patient and consult Cardiology. The patient currently being examined on the telemetry floor. PAST MEDICAL HISTORY: GERD, anemia, osteoarthritis, UTIs, allergic rhinitis. ALLERGIES: None. FAMILY HISTORY: Diabetes. SOCIAL HISTORY: She does not drink or take drugs. She smokes less than a pack per day. MEDICATIONS: Reviewed, please refer to the MRAD. REVIEW OF SYSTEMS: GENERAL: No history of weight change, weakness or fevers. SKIN: No bruising, hair changes or rashes. EYES: No blurred, double or loss of vision. NOSE AND THROAT: No history of nosebleeds, hoarseness or sore throat. HEART: No history of palpitations or shortness of breath on exertion. She complains of chest pain. LUNGS: Denies cough, hemoptysis, wheezing or shortness of breath. GASTROINTESTINAL: Denies changes in appetite, nausea, vomiting, diarrhea or constipation. GENITOURINARY: No history of frequency, urgency, hesitancy or nocturia. NEUROLOGIC: Denies history of numbness, tingling, tremor or weakness. PSYCHIATRIC: No history of panic, anxiety or depression. ENDOCRINE: No history of heat or cold intolerance, polyuria or polydipsia. EXTREMITIES: Denies muscle weakness, joint pain, pain on walking or stiffness. PHYSICAL EXAMINATION: VITALS: Within normal limits and are stable. GENERAL: No apparent distress. Alert and oriented. HEENT: Head is normocephalic, atraumatic, pupils were equally round and reactive to light and accommodation. NECK: Supple, no JVD, no thyromegaly was noted. LUNGS: Clear to auscultation in all lung cuellar without rhonchi or wheezing. HEART: RRR, S1, S2 present. Peripheral pulses intact, no obvious murmurs were noted. ABDOMEN: Soft, nontender. Positive bowel sounds no organomegaly, normal bowel sounds. EXTREMITIES: Without any cyanosis, clubbing, or edema. Pedal pulses intact, Homans sign is negative. NEUROLOGIC: Normal speech, normal tone. A & O x 3, moves all extremities, no obvious focal deficits. PSYCHIATRIC: Normal affect, normal mood. Stable. SKIN: No ulcerations or rashes, good skin turgor, no jaundice. VASCULAR: Good capillary refill, neurovascular bundle appears to be intact. LABORATORY DATA: Troponin is 0. ASSESSMENT AND PLAN: Chest pain, rule out coronary artery disease. The patient has been admitted to the cardiac floor. Serial enzymes, serial EKGs, consult GI, home meds, deep venous thrombosis prophylaxis. Full code. KARL GEE DO DR: MARGUERITE/naeem JOB#: [id number] / [id number]
[2018-11-05] MEDS: HYDROcodone/APAP 5/325MG 1 TAB TABLET PO PRN (20:17)
--- NOTE | 2018-11-05 22:31 | NUR ---
Pt is expressing a desire to NOT be transferred tonight as we have just now gotten ahead of her pain.
[2018-11-06] MEDS: HYDROcodone/APAP 5/325MG 1 TAB TABLET PO PRN ×6 (02:06→23:55)
[2018-11-06 03:40] VITALS: BP 142/96
[2018-11-06 05:23] LABS: BASO # 0.1 x10^3/uL (0.0-0.2); BASO % 1 % (0-3); EOS % 0 % (0-3); HEMATOCRIT 25.9 % (36.0-47.0); HEMOGLOBIN 8.5 g/dL (12.0-15.5); LYMPH # 3.6 x10^3/uL (1.0-4.8); LYMPH % 37 % (24-48); MEAN CORPUSCULAR HEMOGLOBIN 31 pg (25-35); MEAN CORPUSCULAR HGB CONC 33 g/dL (31-37); MEAN CORPUSCULAR VOLUME 96 fL (79-100); MONO # 0.8 x10^3/uL (0.0-1.1); MONO % 8 % (0-9); NEUT # 5.5 x10^3/uL (1.8-7.7); NEUT % 55 % (31-73); PLATELET COUNT 251 x10^3/uL (140-400); RED BLOOD COUNT 2.71 x10^6/uL (3.50-5.40); RED CELL DISTRIBUTION WIDTH 34.2 % (11.5-14.5); WHITE BLOOD COUNT 9.9 x10^3/uL (4.0-11.0)
[2018-11-06 05:37] LABS: CALCIUM 7.1 mg/dL (8.5-10.1); CREATININE 0.6 mg/dL (0.6-1.0); GFR 130.2; POTASSIUM 3.1 mmol/L (3.5-5.1)
[2018-11-06 05:44] LABS: ALBUMIN 2.6 g/dL (3.4-5.0); DIRECT BILIRUBIN 5.6 mg/dL (0.0-0.2); TOTAL BILIRUBIN 7.5 mg/dL (0.2-1.0); TOTAL PROTEIN 7.3 g/dL (6.4-8.2)
[2018-11-06 07:00] VITALS: BP 143/97
[2018-11-06] MEDS: IPRATRPIUM/ALBUTEROL 0.5/2.5MG 3 ML NEBU. NEB SCH ×3 (07:12→19:55)
[2018-11-06 07:39] LABS: % BANDS 4 % (0-9); % BASOS 2 % (0-3); % LYMPHS 19 % (24-48); % MONOS 11 % (0-10); % SEGS 64 % (35-66)
[2018-11-06 07:40] LABS: ANISOCYTOSIS PRESENT; PLT ESTIMATE ADEQUATE (ADEQUATE); POLYCHROMASIA PRESENT; TARGET CELLS MANY
--- NOTE | 2018-11-06 08:59 | PDOC ---
PROGRESS NOTES Chief Complaint Chief Complaint Coughing, vomiting, upper abd pain Elevated LFTs/jaundice - stable, GGT elevated, Hep panel negative, normal plt and INR Hepatic steatosis, h/o heavy alcohol use Chronic constipation History of Present Illness History of Present Illness Ms Díaz is a 48 y/o female w/ PMHx HLD, Gout, HTN, emphysema, chronic back pain who has had a cold for 2 weeks, has been coughing a lot, and is now hoarse. Has also had pressure across the front of her chest x 4 days. H/o heartburn w/ use of Tums PRN. No dysphagia. Sometimes has coughed so hard she also vomits. No hematemesis. Has had intermittent abd pain and swelling for 2 years - has been worse for 1 year. Thinks associated with missing periods. "Swelling" causes shortness of breath and resolves spontaneously. H/o IBS-C w/ typical bowel pattern of 3 stools weekly. No hematochezia or melena. Appetite stable w/ >10 pound weight gain. Labs note normal WBC, Hgb 10 (8.6 today) w/ MCV 91, RDW 32.2, INR 1.3, normal plt, normal BUN. Bili 5.4, AST 299, ALT 39, Alk Phos 680, normal lipase. D- dimer was also elevated. Imaging notes no PE, possible fatty liver, CBD 5mm, somewhat distended gallbladder w/ wall thickening. Previous EGD and colonoscopy at [facility] in 2017 - thinks performed while she was drinking a lot and depressed, recalls no significant findings. Has been told her liver "was high" in the past. No GB, pancreas, or PUD history. Takes ibup rofen PRN. Previous labs here note anemia, elevated LFTs, negative Hepatitis profile, negative ASMITA, and normal AMA. Hepatic steatosis, hepatomegaly, CBD 6mm, and normal GB on US in 2016. Nausea today.Worried about cirrhosis. Still with chest and RUQ pain today as well. Vitals Vitals Vital Signs Date Time Temp Pulse Resp B/P (MAP) Pulse Ox O2 Delivery O2 Flow Rate FiO2 11/06/18 07:14 99 Room Air 11/06/18 07:00 98.2 102 22 143/97 (112) 98.2 11/05/18 20:17 1.0 Physical Exam General: Alert, Oriented X3, Cooperative, No acute distress Heart: Regular rate (SR), Normal S1, Normal S2 Lungs: Clear Abdomen: Soft, Other (RUQ tenderness with palpation) Extremities: No cyanosis, No edema Skin: No breakdown, No significant lesion Labs LABS Laboratory Tests Test 11/05/18 12:41 11/05/18 14:16 11/06/18 04:30 Iron Level 157 ug/dL (50-170) Total Iron Binding Capacity 234 ug/dL (250-450) Iron Saturation 67 % (15-34) Gamma Glutamyl Transpeptidase 1094 U/L (5-55) Vitamin B12 Level 1404 pg/mL (247-911) Hepatitis A IgM Antibody Nonreactive (Nonreactive) Hepatitis B Surface Antigen Nonreactive (Nonreactive) Hepatitis B Core IgM Antibody Nonreactive (Nonreactive) Hepatitis C IgG Antibody Nonreactive (Nonreactive) Urine Collection Type Unknown Urine Color [place] Urine Clarity Clear Urine pH Urine Specific [place] Urine Protein mg/dL (NEG-TRACE) Urine Glucose (UA) mg/dL (NEG) Urine Ketones (Stick) mg/dL (NEG) Urine Blood (NEG) Urine Nitrite (NEG) Urine Bilirubin (NEG) Urine Urobilinogen Dipstick mg/dL (0.2 mg/dL) Urine Leukocyte Esterase (NEG) Urine RBC 0 /HPF (0-2) Urine WBC Rare /HPF (0-4) Urine Squamous Epithelial Cells Few /LPF Urine Bacteria 0 /HPF (0-FEW) Urine Opiates Screen Pos (NEG) Urine Methadone Screen Neg (NEG) Urine Barbiturates Neg (NEG) Urine Phencyclidine Screen Neg (NEG) Urine Amphetamine/Methamphetamine Neg (NEG) Urine Benzodiazepines Screen Neg (NEG) Urine Cocaine Screen Neg (NEG) Urine Cannabinoids Screen Neg (NEG) Urine Ethyl Alcohol Neg (NEG) White Blood Count 9.9 x10^3/uL (4.0-11.0) Red Blood Count 2.71 x10^6/uL (3.50-5.40) Hemoglobin 8.5 g/dL (12.0-15.5) Hematocrit 25.9 % (36.0-47.0) Mean Corpuscular Volume 96 fL (79-100) Mean Corpuscular Hemoglobin 31 pg (25-35) Mean Corpuscular Hemoglobin Concent 33 g/dL (31-37) Red Cell Distribution Width 34.2 % (11.5-14.5) Platelet Count 251 x10^3/uL (140-400) Neutrophils (%) (Auto) 55 % (31-73) Lymphocytes (%) (Auto) 37 % (24-48) Monocytes (%) (Auto) 8 % (0-9) Eosinophils (%) (Auto) 0 % (0-3) Basophils (%) (Auto) 1 % (0-3) Neutrophils # (Auto) 5.5 x10^3/uL (1.8-7.7) Lymphocytes # (Auto) 3.6 x10^3/uL (1.0-4.8) Monocytes # (Auto) 0.8 x10^3/uL (0.0-1.1) Eosinophils # (Auto) 0.0 x10^3/uL (0.0-0.7) Basophils # (Auto) 0.1 x10^3/uL (0.0-0.2) Segmented Neutrophils % 64 % (35-66) Band Neutrophils % 4 % (0-9) Lymphocytes % 19 % (24-48) Monocytes % 11 % (0-10) Basophils % 2 % (0-3) Platelet Estimate Adequate (ADEQUATE) Polychromasia Present Anisocytosis Present Target Cells Many Sodium Level 138 mmol/L (136-145) Potassium Level 3.1 mmol/L (3.5-5.1) Chloride Level 96 mmol/L (98-107) Carbon Dioxide Level 26 mmol/L (21-32) Anion Gap 16 (6-14) Blood Urea Nitrogen 4 mg/dL (7-20) Creatinine 0.6 mg/dL (0.6-1.0) Estimated GFR (Cockcroft-Gault) 130.2 Glucose Level 94 mg/dL (70-99) Calcium Level 7.1 mg/dL (8.5-10.1) Total Bilirubin 7.5 mg/dL (0.2-1.0) Direct Bilirubin 5.6 mg/dL (0.0-0.2) Aspartate Amino Transf (AST/SGOT) 223 U/L (15-37) Alanine Aminotransferase (ALT/SGPT) 33 U/L (14-59) Alkaline Phosphatase 623 U/L (46-116) Total Protein 7.3 g/dL (6.4-8.2) Albumin 2.6 g/dL (3.4-5.0) Assessment and Plan Assessmemt and Plan Problems Medical Problems: (1) Chest pain Status: Acute (2) Dyspnea Status: Acute (3) Elevated transaminase level Status: Acute (4) Hyperbilirubinemia Status: Acute Comment Review of Relevant I have reviewed the following items gina (where applicable) has been applied. Labs Laboratory Tests Test 11/04/18 19:45 11/04/18 20:10 11/05/18 02:40 11/05/18 05:45 White Blood Count 9.1 x10^3/uL (4.0-11.0) 9.4 x10^3/uL (4.0-11.0) Red Blood Count 3.16 x10^6/uL (3.50-5.40) 2.79 x10^6/uL (3.50-5.70) Hemoglobin 10.0 g/dL (12.0-15.5) 8.6 g/dL (12.0-15.5) Hematocrit 28.7 % (36.0-47.0) 25.5 % (36.0-47.0) Mean Corpuscular Volume 91 fL (79-100) 92 fL (79-100) Mean Corpuscular Hemoglobin 32 pg (25-35) 31 pg (25-35) Mean Corpuscular Hemoglobin Concent 35 g/dL (31-37) 34 g/dL (31-37) Red Cell Distribution Width 32.2 % (11.5-14.5) 33.4 % (11.5-14.5) Platelet Count 303 x10^3/uL (140-400) 247 x10^3/uL (140-400) Neutrophils (%) (Auto) 33 % (31-73) 44 % (31-73) Lymphocytes (%) (Auto) 63 % (24-48) 49 % (24-48) Monocytes (%) (Auto) 3 % (0-9) 7 % (0-9) Eosinophils (%) (Auto) 0 % (0-3) 0 % (0-3) Basophils (%) (Auto) 1 % (0-3) 0 % (0-3) Neutrophils # (Auto) 3.0 x10^3/uL (1.8-7.7) 4.2 x10^3/uL (1.8-7.7) Lymphocytes # (Auto) 5.7 x10^3/uL (1.0-4.8) 4.6 x10^3/uL (1.0-4.8) Monocytes # (Auto) 0.3 x10^3/uL (0.0-1.1) 0.6 x10^3/uL (0.0-1.1) Eosinophils # (Auto) 0.0 x10^3/uL (0.0-0.7) 0.0 x10^3/uL (0.0-0.7) Basophils # (Auto) 0.0 x10^3/uL (0.0-0.2) 0.0 x10^3/uL (0.0-0.2) Segmented Neutrophils % 77 % (35-66) 79 % (35-66) Band Neutrophils % 1 % (0-9) Lymphocytes % 10 % (24-48) 15 % (24-48) Monocytes % 7 % (0-10) 5 % (0-10) Eosinophils % 3 % (0-5) 1 % (0-5) Basophils % 2 % (0-3) Nucleated Red Blood Cells 2 1 Toxic Granulation Slight Platelet Estimate Adequate (ADEQUATE) Adequate (ADEQUATE) Platelet Clumps, EDTA Present Large Platelets Occ Anisocytosis Mod Present Target Cells Many Many Schistocytes Occ D-Dimer (Felipa) 3.32 ug/mlFEU (0.00-0.50) Sodium Level 139 mmol/L (136-145) 142 mmol/L (136-145) Potassium Level 3.2 mmol/L (3.5-5.1) 3.3 mmol/L (3.5-5.1) Chloride Level 98 mmol/L (98-107) 102 mmol/L (98-107) Carbon Dioxide Level 25 mmol/L (21-32) 24 mmol/L (21-32) Anion Gap 16 (6-14) 16 (6-14) Blood Urea Nitrogen 4 mg/dL (7-20) 4 mg/dL (7-20) Creatinine 0.6 mg/dL (0.6-1.0) 0.5 mg/dL (0.6-1.0) Estimated GFR (Cockcroft-Gault) 130.2 160.7 BUN/Creatinine Ratio 7 (6-20) Glucose Level 136 mg/dL (70-99) 88 mg/dL (70-99) Calcium Level 7.2 mg/dL (8.5-10.1) 6.8 mg/dL (8.5-10.1) Magnesium Level 0.9 mg/dL (1.8-2.4) 1.5 mg/dL (1.8-2.4) Total Bilirubin 5.4 mg/dL (0.2-1.0) Aspartate Amino Transf (AST/SGOT) 299 U/L (15-37) Alanine Aminotransferase (ALT/SGPT) 39 U/L (14-59) Alkaline Phosphatase 680 U/L (46-116) Troponin I Quantitative < 0.017 ng/mL (0.000-0.055) < 0.017 ng/mL (0.000-0.055) < 0.017 ng/mL (0.000-0.055) HU-[id number]-Type Natriuretic Peptide 30 pg/mL (0-124) Total Protein 7.8 g/dL (6.4-8.2) Albumin 2.5 g/dL (3.4-5.0) Albumin/Globulin Ratio 0.5 (1.0-1.7) Lipase 33 U/L (73-393) Urine Collection Type Unknown Urine Color [place] Urine Clarity [place] Urine pH Urine Specific [place] Urine Protein mg/dL (NEG-TRACE) Urine Glucose (UA) mg/dL (NEG) Urine Ketones (Stick) mg/dL (NEG) Urine Blood (NEG) Urine Nitrite (NEG) Urine Bilirubin (NEG) Urine Urobilinogen Dipstick mg/dL (0.2 mg/dL) Urine Leukocyte Esterase (NEG) Urine RBC 0 /HPF (0-2) Urine WBC Occ /HPF (0-4) Urine Squamous Epithelial Cells Mod /LPF Urine Bacteria Few /HPF (0-FEW) Urine Mucus Mod /LPF Urine Trichomonas Present Polychromasia Present Macrocytosis Present Absolute Reticulocyte Count 0.104 x10^6/uL (0.020-0.120) Percent Reticulocyte Count 3.7 % (0.5-2.3) Immature Reticulocyte Fraction 0.58 (0.20-0.60) Prothrombin Time 15.9 SEC (11.7-14.0) Prothromb Time International Ratio 1.3 (0.8-1.1) Test 11/05/18 12:41 11/05/18 14:16 11/06/18 04:30 Iron Level 157 ug/dL (50-170) Total Iron Binding Capacity 234 ug/dL (250-450) Iron Saturation 67 % (15-34) Gamma Glutamyl Transpeptidase 1094 U/L (5-55) Vitamin B12 Level 1404 pg/mL (247-911) Hepatitis A IgM Antibody Nonreactive (Nonreactive) Hepatitis B Surface Antigen Nonreactive (Nonreactive) Hepatitis B Core IgM Antibody Nonreactive (Nonreactive) Hepatitis C IgG Antibody Nonreactive (Nonreactive) Urine Collection Type Unknown Urine Color [place] Urine Clarity Clear Urine pH Urine Specific [place] Urine Protein mg/dL (NEG-TRACE) Urine Glucose (UA) mg/dL (NEG) Urine Ketones (Stick) mg/dL (NEG) Urine Blood (NEG) Urine Nitrite (NEG) Urine Bilirubin (NEG) Urine Urobilinogen Dipstick mg/dL (0.2 mg/dL) Urine Leukocyte Esterase (NEG) Urine RBC 0 /HPF (0-2) Urine WBC Rare /HPF (0-4) Urine Squamous Epithelial Cells Few /LPF Urine Bacteria 0 /HPF (0-FEW) Urine Opiates Screen Pos (NEG) Urine Methadone Screen Neg (NEG) Urine Barbiturates Neg (NEG) Urine Phencyclidine Screen Neg (NEG) Urine Amphetamine/Methamphetamine Neg (NEG) Urine Benzodiazepines Screen Neg (NEG) Urine Cocaine Screen Neg (NEG) Urine Cannabinoids Screen Neg (NEG) Urine Ethyl Alcohol Neg (NEG) White Blood Count 9.9 x10^3/uL (4.0-11.0) Red Blood Count 2.71 x10^6/uL (3.50-5.40) Hemoglobin 8.5 g/dL (12.0-15.5) Hematocrit 25.9 % (36.0-47.0) Mean Corpuscular Volume 96 fL (79-100) Mean Corpuscular Hemoglobin 31 pg (25-35) Mean Corpuscular Hemoglobin Concent 33 g/dL (31-37) Red Cell Distribution Width 34.2 % (11.5-14.5) Platelet Count 251 x10^3/uL (140-400) Neutrophils (%) (Auto) 55 % (31-73) Lymphocytes (%) (Auto) 37 % (24-48) Monocytes (%) (Auto) 8 % (0-9) Eosinophils (%) (Auto) 0 % (0-3) Basophils (%) (Auto) 1 % (0-3) Neutrophils # (Auto) 5.5 x10^3/uL (1.8-7.7) Lymphocytes # (Auto) 3.6 x10^3/uL (1.0-4.8) Monocytes # (Auto) 0.8 x10^3/uL (0.0-1.1) Eosinophils # (Auto) 0.0 x10^3/uL (0.0-0.7) Basophils # (Auto) 0.1 x10^3/uL (0.0-0.2) Segmented Neutrophils % 64 % (35-66) Band Neutrophils % 4 % (0-9) Lymphocytes % 19 % (24-48) Monocytes % 11 % (0-10) Basophils % 2 % (0-3) Platelet Estimate Adequate (ADEQUATE) Polychromasia Present Anisocytosis Present Target Cells Many Sodium Level 138 mmol/L (136-145) Potassium Level 3.1 mmol/L (3.5-5.1) Chloride Level 96 mmol/L (98-107) Carbon Dioxide Level 26 mmol/L (21-32) Anion Gap 16 (6-14) Blood Urea Nitrogen 4 mg/dL (7-20) Creatinine 0.6 mg/dL (0.6-1.0) Estimated GFR (Cockcroft-Gault) 130.2 Glucose Level 94 mg/dL (70-99) Calcium Level 7.1 mg/dL (8.5-10.1) Total Bilirubin 7.5 mg/dL (0.2-1.0) Direct Bilirubin 5.6 mg/dL (0.0-0.2) Aspartate Amino Transf (AST/SGOT) 223 U/L (15-37) Alanine Aminotransferase (ALT/SGPT) 33 U/L (14-59) Alkaline Phosphatase 623 U/L (46-116) Total Protein 7.3 g/dL (6.4-8.2) Albumin 2.6 g/dL (3.4-5.0) Laboratory Tests Test 11/05/18 12:41 11/05/18 14:16 7/26/19 04:30 Iron Level 157 ug/dL (50-170) Total Iron Binding Capacity 234 ug/dL (250-450) Iron Saturation 67 % (15-34) Gamma Glutamyl Transpeptidase 1094 U/L (5-55) Vitamin B12 Level 1404 pg/mL (247-911) Hepatitis A IgM Antibody Nonreactive (Nonreactive) Hepatitis B Surface Antigen Nonreactive (Nonreactive) Hepatitis B Core IgM Antibody Nonreactive (Nonreactive) Hepatitis C IgG Antibody Nonreactive (Nonreactive) Urine Collection Type Unknown Urine Color [place] Urine Clarity Clear Urine pH Urine Specific [place] Urine Protein mg/dL (NEG-TRACE) Urine Glucose (UA) mg/dL (NEG) Urine Ketones (Stick) mg/dL (NEG) Urine Blood (NEG) Urine Nitrite (NEG) Urine Bilirubin (NEG) Urine Urobilinogen Dipstick mg/dL (0.2 mg/dL) Urine Leukocyte Esterase (NEG) Urine RBC 0 /HPF (0-2) Urine WBC Rare /HPF (0-4) Urine Squamous Epithelial Cells Few /LPF Urine Bacteria 0 /HPF (0-FEW) Urine Opiates Screen Pos (NEG) Urine Methadone Screen Neg (NEG) Urine Barbiturates Neg (NEG) Urine Phencyclidine Screen Neg (NEG) Urine Amphetamine/Methamphetamine Neg (NEG) Urine Benzodiazepines Screen Neg (NEG) Urine Cocaine Screen Neg (NEG) Urine Cannabinoids Screen Neg (NEG) Urine Ethyl Alcohol Neg (NEG) White Blood Count 9.9 x10^3/uL (4.0-11.0) Red Blood Count 2.71 x10^6/uL (3.50-5.40) Hemoglobin 8.5 g/dL (12.0-15.5) Hematocrit 25.9 % (36.0-47.0) Mean Corpuscular Volume 96 fL (79-100) Mean Corpuscular Hemoglobin 31 pg (25-35) Mean Corpuscular Hemoglobin Concent 33 g/dL (31-37) Red Cell Distribution Width 34.2 % (11.5-14.5) Platelet Count 251 x10^3/uL (140-400) Neutrophils (%) (Auto) 55 % (31-73) Lymphocytes (%) (Auto) 37 % (24-48) Monocytes (%) (Auto) 8 % (0-9) Eosinophils (%) (Auto) 0 % (0-3) Basophils (%) (Auto) 1 % (0-3) Neutrophils # (Auto) 5.5 x10^3/uL (1.8-7.7) Lymphocytes # (Auto) 3.6 x10^3/uL (1.0-4.8) Monocytes # (Auto) 0.8 x10^3/uL (0.0-1.1) Eosinophils # (Auto) 0.0 x10^3/uL (0.0-0.7) Basophils # (Auto) 0.1 x10^3/uL (0.0-0.2) Segmented Neutrophils % 64 % (35-66) Band Neutrophils % 4 % (0-9) Lymphocytes % 19 % (24-48) Monocytes % 11 % (0-10) Basophils % 2 % (0-3) Platelet Estimate Adequate (ADEQUATE) Polychromasia Present Anisocytosis Present Target Cells Many Sodium Level 138 mmol/L (136-145) Potassium Level 3.1 mmol/L (3.5-5.1) Chloride Level 96 mmol/L (98-107) Carbon Dioxide Level 26 mmol/L (21-32) Anion Gap 16 (6-14) Blood Urea Nitrogen 4 mg/dL (7-20) Creatinine 0.6 mg/dL (0.6-1.0) Estimated GFR (Cockcroft-Gault) 130.2 Glucose Level 94 mg/dL (70-99) Calcium Level 7.1 mg/dL (8.5-10.1) Total Bilirubin 7.5 mg/dL (0.2-1.0) Direct Bilirubin 5.6 mg/dL (0.0-0.2) Aspartate Amino Transf (AST/SGOT) 223 U/L (15-37) Alanine Aminotransferase (ALT/SGPT) 33 U/L (14-59) Alkaline Phosphatase 623 U/L (46-116) Total Protein 7.3 g/dL (6.4-8.2) Albumin 2.6 g/dL (3.4-5.0) Medications Current Medications Aspirin (Children'S Aspirin) 324 mg 1X ONCE PO Last administered on 11/04/18at 19:55; Start 11/04/18 at 20:00; Stop 11/04/18 at 20:01; Status DC Sodium Chloride 1,000 ml @ 1,000 mls/hr Q1H IV Last administered on 11/04/18at 19:55; Start 11/04/18 at 20:00; Stop 11/04/18 at 20:59; Status DC Ketorolac Tromethamine (Toradol 30mg Vial) 30 mg 1X ONCE IV Last administered on 11/04/18at 19:55; Start 11/04/18 at 20:00; Stop 11/04/18 at 20:01; Status DC Magnesium Sulfate 50 ml @ 25 mls/hr 1X ONCE IV Last administered on 11/04/18at 21:10; Start 11/04/18 at 21:00; Stop 11/04/18 at 22:59; Status DC Iohexol (Omnipaque 350 Mg/ml) 100 ml 1X ONCE IV Last administered on 11/04/18at 21:31; Start 11/04/18 at 21:15; Stop 11/04/18 at 21:16; Status DC Info (CONTRAST GIVEN -- Rx MONITORING) 1 each PRN DAILY PRN MC SEE COMMENTS; Start 11/04/18 at 21:00; Stop 11/06/18 at 20:59 Ondansetron HCl (Zofran) 4 mg PRN Q8HRS PRN IV NAUSEA/VOMITING; Start 11/05/18 at 00:00; Stop 11/05/18 at 23:59; Status DC Morphine Sulfate (Morphine Sulfate) 4 mg PRN Q2HR PRN IV PAIN Last administered on 11/05/18at 23:17; Start 11/05/18 at 00:00; Stop 11/05/18 at 23:59; Status DC Sodium Chloride 1,000 ml @ 100 mls/hr Q10H IV Last administered on 11/05/18at 03:32; Start 11/04/18 at 23:55; Stop 11/05/18 at 11:09; Status DC Nitroglycerin (Nitrostat) 0.4 mg PRN Q5MIN PRN SL CHEST PAIN; Start 11/05/18 at 00:00; Stop 11/05/18 at 23:59; Status DC Albuterol/ Ipratropium (Duoneb) 3 ml RTQID NEB Last administered on 11/06/18at 07:12; Start 11/05/18 at 08:00; Stop 11/06/18 at 07:59; Status DC Magnesium Sulfate 50 ml @ 25 mls/hr 1X ONCE IV Last administered on 11/05/18at 11:04; Start 11/05/18 at 11:00; Stop 11/05/18 at 12:59; Status DC Acetaminophen/ Hydrocodone Bitart (Lortab 5/325) 1 tab PRN Q4HRS PRN PO PAIN Last administered on 11/06/18at 05:52; Start 11/05/18 at 20:00 Lactulose (Lactulose) 20 gm TID PO ; Start 11/06/18 at 09:00; Status UNV Potassium Chloride (Klor-Con) 40 meq 1X ONCE PO ; Start 11/06/18 at 09:00; Stop 11/06/18 at 09:01; Status UNV Potassium Chloride/Water 100 ml @ 100 mls/hr Q1H IV ; Start 11/06/18 at 09:00; Stop 11/06/18 at 10:59; Status UNV Active Scripts Active Ventolin Hfa Inhaler (Albuterol Sulfate) 18 Gm Hfa.aer.ad 2 Puff INH Q4HRS Reported Senokot (Sennosides) 8.6 Mg Tablet 8.6 Mg PO PRN BID PRN Tums (Calcium Carbonate) 300 Mg Tab.chew 300 Mg PO PRN Q2HR PRN Gas-X (Simethicone) 62.5 Mg Strip 62.5 Mg PO PRN Q2HR PRN Ibuprofen 400 Mg Tablet 400 Mg PO PRN Q6HRS PRN Vitals/I & O Vital Sign - Last 24 Hours 11/05/18 11/05/18 11/05/18 11/05/18 10:26 10:54 11:00 14:42 Temp 98.6 98.6 Pulse 101 Resp 18 B/P (MAP) 129/76 (93) Pulse Ox 95 95 O2 Delivery Room Air Room Air Room Air Room Air O2 Flow Rate 1.0 11/05/18 11/05/18 11/05/18 11/05/18 15:00 16:01 16:31 19:22 Temp 98.0 98.3 98.0 98.3 Pulse 96 72 Resp 18 20 B/P (MAP) 132/88 (103) 127/88 (101) Pulse Ox 97 97 97 O2 Delivery Room Air Room Air Room Air O2 Flow Rate 1.0 1.0 11/05/18 11/05/18 11/05/18 11/05/18 20:00 20:10 20:17 20:17 Resp 22 22 Pulse Ox 97 97 O2 Delivery Room Air Room Air Room Air Room Air O2 Flow Rate 1.0 11/05/18 11/05/18 11/05/18 11/06/18 23:00 23:17 23:50 02:06 Temp 98.1 98.1 Pulse 98 Resp 22 B/P (MAP) 145/95 (112) Pulse Ox 98 97 97 97 O2 Delivery Room Air Room Air Room Air Room Air 11/06/18 11/06/18 11/06/18 11/06/18 03:40 03:58 05:52 07:00 Temp 97.8 97.8 Pulse 96 Resp 18 B/P (MAP) 142/96 (111) Pulse Ox 95 95 99 O2 Delivery Room Air Room Air Room Air Room Air 11/06/18 11/06/18 07:00 07:14 Temp 98.2 98.2 Pulse 102 Resp 22 B/P (MAP) 143/97 (112) Pulse Ox 96 99 O2 Delivery Room Air Room Air Intake and Output 11/05/18 11/05/18 11/06/18 14:59 22:59 06:59 Intake Total 240 ml 200 ml Output Total 100 ml 150 ml 200 ml Balance -100 ml 90 ml 0 ml CELINA GUPTA MD Nov 06, 2018 08:59
[2018-11-06] MEDS ORDERED: POTASSIUM CHLORIDE 20 MEQ TABLET.ER. PO ONE (09:00)
[2018-11-06] MEDS: POTASSIUM CHLORIDE 10MEQ 100 ML IV SCH ×2 (09:46→09:51)
[2018-11-06] MEDS: LACTULOSE 20 GM/30 ML SOLUTION. PO SCH ×3 (09:47→20:54)
--- NOTE | 2018-11-06 10:27 | PDOC ---
Infectious Disease Note Vital Sign Vital Signs Vital Signs Date Time Temp Pulse Resp B/P (MAP) Pulse Ox O2 Delivery O2 Flow Rate FiO2 11/06/18 07:14 99 Room Air 11/06/18 07:00 98.2 102 22 143/97 (112) 98.2 11/05/18 20:17 1.0 Labs Lab Laboratory Tests Test 11/05/18 12:41 11/05/18 14:16 11/06/18 04:30 Iron Level 157 ug/dL (50-170) Total Iron Binding Capacity 234 ug/dL (250-450) Iron Saturation 67 % (15-34) Gamma Glutamyl Transpeptidase 1094 U/L (5-55) Vitamin B12 Level 1404 pg/mL (247-911) Hepatitis A IgM Antibody Nonreactive (Nonreactive) Hepatitis B Surface Antigen Nonreactive (Nonreactive) Hepatitis B Core IgM Antibody Nonreactive (Nonreactive) Hepatitis C IgG Antibody Nonreactive (Nonreactive) Urine Collection Type Unknown Urine Color [place] Urine Clarity Clear Urine pH Urine Specific [place] Urine Protein mg/dL (NEG-TRACE) Urine Glucose (UA) mg/dL (NEG) Urine Ketones (Stick) mg/dL (NEG) Urine Blood (NEG) Urine Nitrite (NEG) Urine Bilirubin (NEG) Urine Urobilinogen Dipstick mg/dL (0.2 mg/dL) Urine Leukocyte Esterase (NEG) Urine RBC 0 /HPF (0-2) Urine WBC Rare /HPF (0-4) Urine Squamous Epithelial Cells Few /LPF Urine Bacteria 0 /HPF (0-FEW) Urine Opiates Screen Pos (NEG) Urine Methadone Screen Neg (NEG) Urine Barbiturates Neg (NEG) Urine Phencyclidine Screen Neg (NEG) Urine Amphetamine/Methamphetamine Neg (NEG) Urine Benzodiazepines Screen Neg (NEG) Urine Cocaine Screen Neg (NEG) Urine Cannabinoids Screen Neg (NEG) Urine Ethyl Alcohol Neg (NEG) White Blood Count 9.9 x10^3/uL (4.0-11.0) Red Blood Count 2.71 x10^6/uL (3.50-5.40) Hemoglobin 8.5 g/dL (12.0-15.5) Hematocrit 25.9 % (36.0-47.0) Mean Corpuscular Volume 96 fL (79-100) Mean Corpuscular Hemoglobin 31 pg (25-35) Mean Corpuscular Hemoglobin Concent 33 g/dL (31-37) Red Cell Distribution Width 34.2 % (11.5-14.5) Platelet Count 251 x10^3/uL (140-400) Neutrophils (%) (Auto) 55 % (31-73) Lymphocytes (%) (Auto) 37 % (24-48) Monocytes (%) (Auto) 8 % (0-9) Eosinophils (%) (Auto) 0 % (0-3) Basophils (%) (Auto) 1 % (0-3) Neutrophils # (Auto) 5.5 x10^3/uL (1.8-7.7) Lymphocytes # (Auto) 3.6 x10^3/uL (1.0-4.8) Monocytes # (Auto) 0.8 x10^3/uL (0.0-1.1) Eosinophils # (Auto) 0.0 x10^3/uL (0.0-0.7) Basophils # (Auto) 0.1 x10^3/uL (0.0-0.2) Segmented Neutrophils % 64 % (35-66) Band Neutrophils % 4 % (0-9) Lymphocytes % 19 % (24-48) Monocytes % 11 % (0-10) Basophils % 2 % (0-3) Platelet Estimate Adequate (ADEQUATE) Polychromasia Present Anisocytosis Present Target Cells Many Sodium Level 138 mmol/L (136-145) Potassium Level 3.1 mmol/L (3.5-5.1) Chloride Level 96 mmol/L (98-107) Carbon Dioxide Level 26 mmol/L (21-32) Anion Gap 16 (6-14) Blood Urea Nitrogen 4 mg/dL (7-20) Creatinine 0.6 mg/dL (0.6-1.0) Estimated GFR (Cockcroft-Gault) 130.2 Glucose Level 94 mg/dL (70-99) Calcium Level 7.1 mg/dL (8.5-10.1) Magnesium Level 1.5 mg/dL (1.8-2.4) Total Bilirubin 7.5 mg/dL (0.2-1.0) Direct Bilirubin 5.6 mg/dL (0.0-0.2) Aspartate Amino Transf (AST/SGOT) 223 U/L (15-37) Alanine Aminotransferase (ALT/SGPT) 33 U/L (14-59) Alkaline Phosphatase 623 U/L (46-116) Total Protein 7.3 g/dL (6.4-8.2) Albumin 2.6 g/dL (3.4-5.0) Objective Assessment Cough with jael pulmonary infiltrate Elevated LFT COPD Seizure disorder Plan Plan of Care workup ordered MATTHEW Carney MD Nov 06, 2018 10:27
--- NOTE | 2018-11-06 10:56 | PDOC ---
Subjective: Subjective: Vomiting after coughing, also vomiting after eating a few bites of food. Denies dysphagia and odynophagia. Abd discomfort - "just a pain." Wants to know if she has cirrhosis. Says she'll stop drinking. Objective: Vital Signs: Vital Signs Date Time Temp Pulse Resp B/P (MAP) Pulse Ox O2 Delivery O2 Flow Rate FiO2 11/06/18 10:24 99 Room Air 1.0 11/06/18 07:00 98.2 102 22 143/97 (112) 98.2 Labs: Laboratory Tests Test 11/05/18 12:41 11/05/18 14:16 11/06/18 04:30 Iron Level 157 ug/dL Total Iron Binding Capacity 234 ug/dL Iron Saturation 67 % Gamma Glutamyl Transpeptidase 1094 U/L Vitamin B12 Level 1404 pg/mL Hepatitis A IgM Antibody Nonreactive Hepatitis B Surface Antigen Nonreactive Hepatitis B Core IgM Antibody Nonreactive Hepatitis C IgG Antibody Nonreactive Urine Collection Type Unknown Urine Color [place] Urine Clarity Clear Urine pH Urine Specific [place] Urine Protein mg/dL Urine Glucose (UA) mg/dL Urine Ketones (Stick) mg/dL Urine Blood Urine Nitrite Urine Bilirubin Urine Urobilinogen Dipstick mg/dL Urine Leukocyte Esterase Urine RBC 0 /HPF Urine WBC Rare /HPF Urine Squamous Epithelial Cells Few /LPF Urine Bacteria 0 /HPF Urine Opiates Screen Pos Urine Methadone Screen Neg Urine Barbiturates Neg Urine Phencyclidine Screen Neg Urine Amphetamine/Methamphetamine Neg Urine Benzodiazepines Screen Neg Urine Cocaine Screen Neg Urine Cannabinoids Screen Neg Urine Ethyl Alcohol Neg White Blood Count 9.9 x10^3/uL Red Blood Count 2.71 x10^6/uL Hemoglobin 8.5 g/dL Hematocrit 25.9 % Mean Corpuscular Volume 96 fL Mean Corpuscular Hemoglobin 31 pg Mean Corpuscular Hemoglobin Concent 33 g/dL Red Cell Distribution Width 34.2 % Platelet Count 251 x10^3/uL Neutrophils (%) (Auto) 55 % Lymphocytes (%) (Auto) 37 % Monocytes (%) (Auto) 8 % Eosinophils (%) (Auto) 0 % Basophils (%) (Auto) 1 % Neutrophils # (Auto) 5.5 x10^3/uL Lymphocytes # (Auto) 3.6 x10^3/uL Monocytes # (Auto) 0.8 x10^3/uL Eosinophils # (Auto) 0.0 x10^3/uL Basophils # (Auto) 0.1 x10^3/uL Segmented Neutrophils % 64 % Band Neutrophils % 4 % Lymphocytes % 19 % Monocytes % 11 % Basophils % 2 % Platelet Estimate Adequate Polychromasia Present Anisocytosis Present Target Cells Many Sodium Level 138 mmol/L Potassium Level 3.1 mmol/L Chloride Level 96 mmol/L Carbon Dioxide Level 26 mmol/L Anion Gap 16 Blood Urea Nitrogen 4 mg/dL Creatinine 0.6 mg/dL Estimated GFR (Cockcroft-Gault) 130.2 Glucose Level 94 mg/dL Calcium Level 7.1 mg/dL Magnesium Level 1.5 mg/dL Total Bilirubin 7.5 mg/dL Direct Bilirubin 5.6 mg/dL Aspartate Amino Transf (AST/SGOT) 223 U/L Alanine Aminotransferase (ALT/SGPT) 33 U/L Alkaline Phosphatase 623 U/L Total Protein 7.3 g/dL Albumin 2.6 g/dL PE: GEN: looks uncomfortable drinking water HEENT: less hoarse LUNGS: room air HEART: RRR ABD: epigastric discomfort NEURO/PSYCH: A & O �3 A/P: Coughing, vomiting, upper abd pain Elevated LFTs/jaundice - stable, GGT elevated, Hep panel negative, normal plt and INR Hepatic steatosis, h/o heavy alcohol use Chronic constipation -- D/w Dr. Christopher - appreciate ID eval - started doxycycline, additional labs ordered. ?MRCP/liver biopsy down the road Has a variety of symptoms - history a bit challenging. Continue PPI. Trying lactulose for constipation. Encouraged abstinence from alcohol. JUANCHO PATRICIO Nov 06, 2018 10:56
[2018-11-06 11:00] VITALS: BP 135/88
--- NOTE | 2018-11-06 11:25 | NUR ---
SS following for discharge planning. SS reviewed pt chart. Pt is self pay pt. HCFS following for self pay status. Pt is from home with family and is currently on room air. No discharge needs noted at this time. SS will continue to follow for discharge planning.
[2018-11-06] MEDS ORDERED: ONDANSETRON PF 4 MG/2 ML VIAL. IV PRN (11:45)
[2018-11-06] MEDS ORDERED: MAGNESIUM SULFATE 4GM 100 ML IV ONE (11:45)
[2018-11-06 11:56] LABS: MYCOPLASMA PATIENT POSITIVE (NEGATIVE)
[2018-11-06 15:00] VITALS: BP 136/87
[2018-11-06] MEDS: DOXYCYCLINE HYCLATE 100 MG TABLET PO SCH ×2 (15:03→20:54)
[2018-11-06] MEDS ORDERED: AZITHROMYCIN 500 MG in IV NORMAL SALINE 250ML 250 ML IV SCH (18:00)
[2018-11-06 19:00] VITALS: BP 109/74
--- NOTE | 2018-11-06 21:41 | CONS ---
DATE OF CONSULTATION: 11/06/2018 REQUESTING PHYSICIAN: Dr. Pak. REASON FOR CONSULTATION: Cough and bilateral nodular infiltrate. HISTORY OF PRESENT ILLNESS: This is a 48-year-old -[place] female, who started having a cough, mainly dry cough 2 weeks ago. The coughing was so hard, she says that she started vomiting with the cough. The patient denied any fever. The patient eventually came in. The patient was found to have elevated liver function tests. Chest x-ray was normal but chest CT showed ground glass and nodular opacities bilaterally. The patient has been undergoing GI workup and consult has been requested for further reason for the cough and/or nodular infiltrate, which is very subtle. The patient denies any headache or visual symptoms. The patient has abdominal pain. The patient has cough and denies any weight loss, denies any drug use. Denies any traveling. No other sick contacts, she says. PAST MEDICAL HISTORY: Positive for seizure disorder, gastroesophageal reflux disease, anemia, osteoarthritis. PAST SURGICAL HISTORY: The patient has had arthroscopic knee surgery, tubal ligation done in the past. SOCIAL HISTORY: Positive for smoking, positive for alcohol use. She denies any drug use, although in 2018, she had methamphetamine drug screen positive. ALLERGIES: No known drug allergies. CURRENT MEDICATIONS: Reviewed. REVIEW OF SYSTEMS: As per HPI, all other systems reviewed are negative. PHYSICAL EXAMINATION: GENERAL: Alert, oriented female, not in distress. VITAL SIGNS: Stable, afebrile. HEENT: NAD. NECK: Supple, no JVP, no lymphadenopathy. LUNGS: Clear. HEART: S1, S2 regular. ABDOMEN: Soft, mild right upper quadrant tenderness present. No organomegaly, no rebound, no guarding. EXTREMITIES: No edema, cyanosis. SKIN: Unremarkable. NEUROLOGIC: Alert, awake and appropriate. No focal neurologic deficit. LABORATORY DATA: White count is normal, hemoglobin 8.5, platelets are normal. She has 11% monocytes. BUN and creatinine is normal. Total bilirubin 7.5. GGT is 1094. AST is 223, ALT is 33, alkaline phosphatase is 623. Urine drug screen was positive for opiates only. Urinalysis was unremarkable. Hepatitis panel is negative. Chest x-ray unremarkable. Chest CT is as I mentioned in the HPI. An ultrasound showed liver is echogenic. IMPRESSION: 1. Cough for 2 weeks, a really hard cough. On further questioning, the patient was asked if barking cough, she says yes; it could be pertussis, although now [address], only symptomatic treatment is recommended for pertussis even if she has had it. The patient could also have Mycoplasma, Legionella is less likely, the patient is not that sick and CMV can cause liver function elevation and/or also the respiratory illness. We will do the workup for this and started on p.o. doxycycline, supportive care, and we will continue to follow. Thank you very much, Dr. Pak and Dr. Catalan, for giving me the opportunity to participate in this patient's care. MATTHEW LUCIO MD DR: SANDRA/naeem JOB#: [id number] / [id number]
[2018-11-06 23:00] VITALS: BP 136/82
[2018-11-07 03:00] VITALS: BP 123/76
[2018-11-07 05:44] LABS: BASO % 0 % (0-3); EOS # 0.1 x10^3/uL (0.0-0.7); EOS % 1 % (0-3); HEMATOCRIT 26.3 % (36.0-47.0); HEMOGLOBIN 8.3 g/dL (12.0-15.5); LYMPH # 2.3 x10^3/uL (1.0-4.8); LYMPH % 20 % (24-48); MEAN CORPUSCULAR HEMOGLOBIN 31 pg (25-35); MEAN CORPUSCULAR HGB CONC 32 g/dL (31-37); MEAN CORPUSCULAR VOLUME 99 fL (79-100); MONO # 1.1 x10^3/uL (0.0-1.1); MONO % 10 % (0-9); NEUT % 69 % (31-73); PLATELET COUNT 257 x10^3/uL (140-400); RED BLOOD COUNT 2.67 x10^6/uL (3.50-5.40); RED CELL DISTRIBUTION WIDTH 34.5 % (11.5-14.5); WHITE BLOOD COUNT 11.5 x10^3/uL (4.0-11.0)
[2018-11-07 05:46] LABS: CALCIUM 7.6 mg/dL (8.5-10.1); CREATININE 0.8 mg/dL (0.6-1.0); GFR 93.4; POTASSIUM 3.4 mmol/L (3.5-5.1)
[2018-11-07] MEDS: IPRATRPIUM/ALBUTEROL 0.5/2.5MG 3 ML NEBU. NEB SCH ×4 (07:14→19:44)
[2018-11-07 07:59] VITALS: BP 107/64
[2018-11-07] MEDS: DOXYCYCLINE HYCLATE 100 MG TABLET PO SCH ×2 (08:03→20:41)
[2018-11-07] MEDS: HYDROcodone/APAP 5/325MG 1 TAB TABLET PO PRN ×2 (08:03→14:02)
[2018-11-07] MEDS: LACTULOSE 20 GM/30 ML SOLUTION. PO SCH ×3 (08:03→20:55)
--- NOTE | 2018-11-07 08:16 | PDOC ---
PROGRESS NOTES Chief Complaint Chief Complaint Coughing, vomiting, upper abd pain Elevated LFTs/jaundice - stable, GGT elevated, Hep panel negative, normal plt and INR Hepatic steatosis, h/o heavy alcohol use Chronic constipation Mycoplasma serology positive - on doxy and azithromycin COPD on imaging Seizure disorder Hypokalemia Hypomagnesemia History of Present Illness History of Present Illness Ms Díaz is a 48 y/o female w/ PMHx HLD, Gout, HTN, emphysema, chronic back pain who has had a cold for 2 weeks, has been coughing a lot, and is now hoarse. Has also had pressure across the front of her chest x 4 days. H/o heartburn w/ use of Tums PRN. No dysphagia. Sometimes has coughed so hard she also vomits. No hematemesis. Has had intermittent abd pain and swelling for 2 years - has been worse for 1 year. Thinks associated with missing periods. "Swelling" causes shortness of breath and resolves spontaneously. H/o IBS-C w/ typical bowel pattern of 3 stools weekly. No hematochezia or melena. Appetite stable w/ >10 pound weight gain. Labs note normal WBC, Hgb 10 (8.6 today) w/ MCV 91, RDW 32.2, INR 1.3, normal plt, normal BUN. Bili 5.4, AST 299, ALT 39, Alk Phos 680, normal lipase. D- dimer was also elevated. Imaging notes no PE, possible fatty liver, CBD 5mm, somewhat distended gallbladder w/ wall thickening. Previous labs here note anemia, elevated LFTs, negative Hepatitis profile, negative ASMITA, and normal AMA. Hepatic steatosis, hepatomegaly, CBD 6mm, and normal GB on US in 2016. Nausea today.Worried about cirrhosis. Still with chest and RUQ pain today as well. LFTs slightly improved, except for Bilirubin. Mycoplasma serology positive. leukocytosis today Vitals Vitals Vital Signs Date Time Temp Pulse Resp B/P (MAP) Pulse Ox O2 Delivery O2 Flow Rate FiO2 11/07/18 08:03 Room Air 11/07/18 07:15 99 11/07/18 03:00 98.4 107 20 123/76 (92) 98.4 11/06/18 20:46 3.0 Physical Exam General: Alert, Oriented X3, Cooperative, No acute distress Heart: Regular rate (SR), Normal S1, Normal S2 Lungs: Clear Abdomen: Soft, Other (RUQ tenderness with palpation) Extremities: No cyanosis, No edema Skin: No breakdown, No significant lesion Labs LABS Laboratory Tests Test 11/07/18 04:40 White Blood Count 11.5 x10^3/uL (4.0-11.0) Red Blood Count 2.67 x10^6/uL (3.50-5.40) Hemoglobin 8.3 g/dL (12.0-15.5) Hematocrit 26.3 % (36.0-47.0) Mean Corpuscular Volume 99 fL (79-100) Mean Corpuscular Hemoglobin 31 pg (25-35) Mean Corpuscular Hemoglobin Concent 32 g/dL (31-37) Red Cell Distribution Width 34.5 % (11.5-14.5) Platelet Count 257 x10^3/uL (140-400) Neutrophils (%) (Auto) 69 % (31-73) Lymphocytes (%) (Auto) 20 % (24-48) Monocytes (%) (Auto) 10 % (0-9) Eosinophils (%) (Auto) 1 % (0-3) Basophils (%) (Auto) 0 % (0-3) Neutrophils # (Auto) 8.0 x10^3/uL (1.8-7.7) Lymphocytes # (Auto) 2.3 x10^3/uL (1.0-4.8) Monocytes # (Auto) 1.1 x10^3/uL (0.0-1.1) Eosinophils # (Auto) 0.1 x10^3/uL (0.0-0.7) Basophils # (Auto) 0.0 x10^3/uL (0.0-0.2) Sodium Level 136 mmol/L (136-145) Potassium Level 3.4 mmol/L (3.5-5.1) Chloride Level 97 mmol/L (98-107) Carbon Dioxide Level 23 mmol/L (21-32) Anion Gap 16 (6-14) Blood Urea Nitrogen 5 mg/dL (7-20) Creatinine 0.8 mg/dL (0.6-1.0) Estimated GFR (Cockcroft-Gault) 93.4 Glucose Level 80 mg/dL (70-99) Calcium Level 7.6 mg/dL (8.5-10.1) Assessment and Plan Assessmemt and Plan Problems Medical Problems: (1) Chest pain Status: Acute (2) Dyspnea Status: Acute (3) Elevated transaminase level Status: Acute (4) Hyperbilirubinemia Status: Acute Comment Review of Relevant I have reviewed the following items gina (where applicable) has been applied. Labs Laboratory Tests Test 11/05/18 12:41 11/05/18 14:16 11/06/18 04:30 11/07/18 04:40 Iron Level 157 ug/dL (50-170) Total Iron Binding Capacity 234 ug/dL (250-450) Iron Saturation 67 % (15-34) Gamma Glutamyl Transpeptidase 1094 U/L (5-55) Vitamin B12 Level 1404 pg/mL (247-911) Hepatitis A IgM Antibody Nonreactive (Nonreactive) Hepatitis B Surface Antigen Nonreactive (Nonreactive) Hepatitis B Core IgM Antibody Nonreactive (Nonreactive) Hepatitis C IgG Antibody Nonreactive (Nonreactive) Urine Collection Type Unknown Urine Color [place] Urine Clarity Clear Urine pH Urine Specific [place] Urine Protein mg/dL (NEG-TRACE) Urine Glucose (UA) mg/dL (NEG) Urine Ketones (Stick) mg/dL (NEG) Urine Blood (NEG) Urine Nitrite (NEG) Urine Bilirubin (NEG) Urine Urobilinogen Dipstick mg/dL (0.2 mg/dL) Urine Leukocyte Esterase (NEG) Urine RBC 0 /HPF (0-2) Urine WBC Rare /HPF (0-4) Urine Squamous Epithelial Cells Few /LPF Urine Bacteria 0 /HPF (0-FEW) Urine Opiates Screen Pos (NEG) Urine Methadone Screen Neg (NEG) Urine Barbiturates Neg (NEG) Urine Phencyclidine Screen Neg (NEG) Urine Amphetamine/Methamphetamine Neg (NEG) Urine Benzodiazepines Screen Neg (NEG) Urine Cocaine Screen Neg (NEG) Urine Cannabinoids Screen Neg (NEG) Urine Ethyl Alcohol Neg (NEG) White Blood Count 9.9 x10^3/uL (4.0-11.0) 11.5 x10^3/uL (4.0-11.0) Red Blood Count 2.71 x10^6/uL (3.50-5.40) 2.67 x10^6/uL (3.50-5.40) Hemoglobin 8.5 g/dL (12.0-15.5) 8.3 g/dL (12.0-15.5) Hematocrit 25.9 % (36.0-47.0) 26.3 % (36.0-47.0) Mean Corpuscular Volume 96 fL (79-100) 99 fL (79-100) Mean Corpuscular Hemoglobin 31 pg (25-35) 31 pg (25-35) Mean Corpuscular Hemoglobin Concent 33 g/dL (31-37) 32 g/dL (31-37) Red Cell Distribution Width 34.2 % (11.5-14.5) 34.5 % (11.5-14.5) Platelet Count 251 x10^3/uL (140-400) 257 x10^3/uL (140-400) Neutrophils (%) (Auto) 55 % (31-73) 69 % (31-73) Lymphocytes (%) (Auto) 37 % (24-48) 20 % (24-48) Monocytes (%) (Auto) 8 % (0-9) 10 % (0-9) Eosinophils (%) (Auto) 0 % (0-3) 1 % (0-3) Basophils (%) (Auto) 1 % (0-3) 0 % (0-3) Neutrophils # (Auto) 5.5 x10^3/uL (1.8-7.7) 8.0 x10^3/uL (1.8-7.7) Lymphocytes # (Auto) 3.6 x10^3/uL (1.0-4.8) 2.3 x10^3/uL (1.0-4.8) Monocytes # (Auto) 0.8 x10^3/uL (0.0-1.1) 1.1 x10^3/uL (0.0-1.1) Eosinophils # (Auto) 0.0 x10^3/uL (0.0-0.7) 0.1 x10^3/uL (0.0-0.7) Basophils # (Auto) 0.1 x10^3/uL (0.0-0.2) 0.0 x10^3/uL (0.0-0.2) Segmented Neutrophils % 64 % (35-66) Band Neutrophils % 4 % (0-9) Lymphocytes % 19 % (24-48) Monocytes % 11 % (0-10) Basophils % 2 % (0-3) Platelet Estimate Adequate (ADEQUATE) Polychromasia Present Anisocytosis Present Target Cells Many Sodium Level 138 mmol/L (136-145) 136 mmol/L (136-145) Potassium Level 3.1 mmol/L (3.5-5.1) 3.4 mmol/L (3.5-5.1) Chloride Level 96 mmol/L (98-107) 97 mmol/L (98-107) Carbon Dioxide Level 26 mmol/L (21-32) 23 mmol/L (21-32) Anion Gap 16 (6-14) 16 (6-14) Blood Urea Nitrogen 4 mg/dL (7-20) 5 mg/dL (7-20) Creatinine 0.6 mg/dL (0.6-1.0) 0.8 mg/dL (0.6-1.0) Estimated GFR (Cockcroft-Gault) 130.2 93.4 Glucose Level 94 mg/dL (70-99) 80 mg/dL (70-99) Calcium Level 7.1 mg/dL (8.5-10.1) 7.6 mg/dL (8.5-10.1) Magnesium Level 1.5 mg/dL (1.8-2.4) Total Bilirubin 7.5 mg/dL (0.2-1.0) Direct Bilirubin 5.6 mg/dL (0.0-0.2) Aspartate Amino Transf (AST/SGOT) 223 U/L (15-37) Alanine Aminotransferase (ALT/SGPT) 33 U/L (14-59) Alkaline Phosphatase 623 U/L (46-116) Total Protein 7.3 g/dL (6.4-8.2) Albumin 2.6 g/dL (3.4-5.0) Mycoplasma Serology (LAB) Positive (NEGATIVE) Laboratory Tests Test 11/07/18 04:40 White Blood Count 11.5 x10^3/uL (4.0-11.0) Red Blood Count 2.67 x10^6/uL (3.50-5.40) Hemoglobin 8.3 g/dL (12.0-15.5) Hematocrit 26.3 % (36.0-47.0) Mean Corpuscular Volume 99 fL (79-100) Mean Corpuscular Hemoglobin 31 pg (25-35) Mean Corpuscular Hemoglobin Concent 32 g/dL (31-37) Red Cell Distribution Width 34.5 % (11.5-14.5) Platelet Count 257 x10^3/uL (140-400) Neutrophils (%) (Auto) 69 % (31-73) Lymphocytes (%) (Auto) 20 % (24-48) Monocytes (%) (Auto) 10 % (0-9) Eosinophils (%) (Auto) 1 % (0-3) Basophils (%) (Auto) 0 % (0-3) Neutrophils # (Auto) 8.0 x10^3/uL (1.8-7.7) Lymphocytes # (Auto) 2.3 x10^3/uL (1.0-4.8) Monocytes # (Auto) 1.1 x10^3/uL (0.0-1.1) Eosinophils # (Auto) 0.1 x10^3/uL (0.0-0.7) Basophils # (Auto) 0.0 x10^3/uL (0.0-0.2) Sodium Level 136 mmol/L (136-145) Potassium Level 3.4 mmol/L (3.5-5.1) Chloride Level 97 mmol/L (98-107) Carbon Dioxide Level 23 mmol/L (21-32) Anion Gap 16 (6-14) Blood Urea Nitrogen 5 mg/dL (7-20) Creatinine 0.8 mg/dL (0.6-1.0) Estimated GFR (Cockcroft-Gault) 93.4 Glucose Level 80 mg/dL (70-99) Calcium Level 7.6 mg/dL (8.5-10.1) Medications Current Medications Aspirin (Children'S Aspirin) 324 mg 1X ONCE PO Last administered on 11/04/18at 19:55; Start 11/04/18 at 20:00; Stop 11/04/18 at 20:01; Status DC Sodium Chloride 1,000 ml @ 1,000 mls/hr Q1H IV Last administered on 11/04/18at 19:55; Start 11/04/18 at 20:00; Stop 11/04/18 at 20:59; Status DC Ketorolac Tromethamine (Toradol 30mg Vial) 30 mg 1X ONCE IV Last administered on 11/04/18at 19:55; Start 11/04/18 at 20:00; Stop 11/04/18 at 20:01; Status DC Magnesium Sulfate 50 ml @ 25 mls/hr 1X ONCE IV Last administered on 11/04/18at 21:10; Start 11/04/18 at 21:00; Stop 11/04/18 at 22:59; Status DC Iohexol (Omnipaque 350 Mg/ml) 100 ml 1X ONCE IV Last administered on 11/04/18at 21:31; Start 11/04/18 at 21:15; Stop 11/04/18 at 21:16; Status DC Info (CONTRAST GIVEN -- Rx MONITORING) 1 each PRN DAILY PRN MC SEE COMMENTS; Start 11/04/18 at 21:00; Stop 11/06/18 at 20:59; Status DC Ondansetron HCl (Zofran) 4 mg PRN Q8HRS PRN IV NAUSEA/VOMITING; Start 11/05/18 at 00:00; Stop 11/05/18 at 23:59; Status DC Morphine Sulfate (Morphine Sulfate) 4 mg PRN Q2HR PRN IV PAIN Last administered on 11/05/18at 23:17; Start 11/05/18 at 00:00; Stop 11/05/18 at 23:59; Status DC Sodium Chloride 1,000 ml @ 100 mls/hr Q10H IV Last administered on 11/05/18at 03:32; Start 11/04/18 at 23:55; Stop 11/05/18 at 11:09; Status DC Nitroglycerin (Nitrostat) 0.4 mg PRN Q5MIN PRN SL CHEST PAIN; Start 11/05/18 at 00:00; Stop 11/05/18 at 23:59; Status DC Albuterol/ Ipratropium (Duoneb) 3 ml RTQID NEB Last administered on 11/06/18at 07:12; Start 11/05/18 at 08:00; Stop 11/06/18 at 07:59; Status DC Magnesium Sulfate 50 ml @ 25 mls/hr 1X ONCE IV Last administered on 11/05/18at 11:04; Start 11/05/18 at 11:00; Stop 11/05/18 at 12:59; Status DC Acetaminophen/ Hydrocodone Bitart (Lortab 5/325) 1 tab PRN Q4HRS PRN PO PAIN Last administered on 11/07/18 08:03; Start 11/05/18 at 20:00 Lactulose (Lactulose) 20 gm TID PO Last administered on 11/06/18 20:54; Start 11/06/18 at 09:00 Potassium Chloride (Klor-Con) 40 meq 1X ONCE PO Last administered on 11/06/18 09:47; Start 11/06/18 at 09:00; Stop 11/06/18 at 09:01; Status DC Potassium Chloride/Water 100 ml @ 100 mls/hr Q1H IV Last administered on 11/06/18 09:51; Start 11/06/18 at 09:00; Stop 11/06/18 at 10:59; Status DC Doxycycline Hyclate (Vibra-Tab) 100 mg BID PO Last administered on 11/07/18 08:03; Start 11/06/18 at 11:00 Albuterol/ Ipratropium (Duoneb) 3 ml RTQID NEB Last administered on 11/07/18 07:14; Start 11/06/18 at 12:00 Ondansetron HCl (Zofran) 4 mg PRN Q6HRS PRN IV NAUSEA/VOMITING; Start 11/06/18 at 11:45 Magnesium Sulfate/ Dextrose 100 ml @ 25 mls/hr 1X ONCE IV Last administered on 11/06/18 15:03; Start 11/06/18 at 11:45; Stop 11/06/18 at 15:44; Status DC Azithromycin 500 mg/Sodium Chloride 250 ml @ 250 mls/hr Q24H IV Last administered on 11/06/18 19:45; Start 11/06/18 at 18:00 Active Scripts Active Ventolin Hfa Inhaler (Albuterol Sulfate) 18 Gm Hfa.aer.ad 2 Puff INH Q4HRS Reported Senokot (Sennosides) 8.6 Mg Tablet 8.6 Mg PO PRN BID PRN Tums (Calcium Carbonate) 300 Mg Tab.chew 300 Mg PO PRN Q2HR PRN Gas-X (Simethicone) 62.5 Mg Strip 62.5 Mg PO PRN Q2HR PRN Ibuprofen 400 Mg Tablet 400 Mg PO PRN Q6HRS PRN Vitals/I & O Vital Sign - Last 24 Hours 11/06/18 11/06/18 11/06/18 11/06/18 10:24 11:00 11:17 15:00 Temp 98.2 98.2 98.2 98.2 Pulse 101 97 Resp 22 20 B/P (MAP) 135/88 (104) 136/87 (103) Pulse Ox 99 98 98 96 O2 Delivery Room Air Room Air Room Air Room Air O2 Flow Rate 1.0 11/06/18 11/06/18 11/06/18 11/06/18 15:02 15:05 16:02 19:00 Temp 98.0 98.0 Pulse 105 Resp 16 14 18 B/P (MAP) 109/74 (86) Pulse Ox 96 95 O2 Delivery Room Air Room Air Room Air 11/06/18 11/06/18 11/06/18 11/06/18 19:46 19:56 20:00 20:46 Pulse Ox 100 100 O2 Delivery Room Air Room Air Room Air Room Air O2 Flow Rate 3.0 11/06/18 11/06/18 11/07/18 11/07/18 23:00 23:55 03:00 07:15 Temp 99.0 98.4 99.0 98.4 Pulse 111 107 Resp 20 20 B/P (MAP) 136/82 (100) 123/76 (92) Pulse Ox 94 97 99 O2 Delivery Room Air Room Air Room Air Room Air 11/07/18 08:03 O2 Delivery Room Air Intake and Output 11/06/18 11/06/18 11/07/18 15:00 23:00 07:00 Intake Total 500 ml 400 ml 300 ml Balance 500 ml 400 ml 300 ml CELINA GUPTA MD Nov 07, 2018 08:16
[2018-11-07] MEDS: POTASSIUM CHLORIDE 10MEQ 100 ML IV SCH ×4 (09:00→12:00)
[2018-11-07 09:22] LABS: ALBUMIN 2.4 g/dL (3.4-5.0); DIRECT BILIRUBIN 7.3 mg/dL (0.0-0.2); TOTAL BILIRUBIN 9.1 mg/dL (0.2-1.0)
--- NOTE | 2018-11-07 10:35 | PDOC ---
Infectious Disease Note Subjective: Subjective pt continues to feel the same no apetite poor po intake no f/c ROS: ROS d/w rn Vital Signs: Vital Signs Vital Signs Date Time Temp Pulse Resp B/P (MAP) Pulse Ox O2 Delivery O2 Flow Rate FiO2 11/07/18 09:25 Room Air 11/07/18 07:59 98.3 110 16 107/64 (78) 96 98.3 11/06/18 20:46 3.0 Physical Exam: PHYSICAL EXAM GENERAL: Alert, oriented female, not in distress. VITAL SIGNS: Stable, afebrile. HEENT: NAD. NECK: Supple, no JVP, no lymphadenopathy. LUNGS: Clear. HEART: S1, S2 regular. ABDOMEN: Soft, mild right upper quadrant tenderness present. No organomegaly, no rebound, no guarding. EXTREMITIES: No edema, cyanosis. SKIN: Unremarkable. NEUROLOGIC: Alert, awake and appropriate. No focal neurologic defici Medications: Inpatient Meds: Current Medications Medications (Trade) Dose Ordered Sig/Francisoc Start Time Stop Time Status Last Admin Dose Admin Acetaminophen/ Hydrocodone Bitart (Lortab 5/325) 1 tab PRN Q4HRS PRN 11/05/18 20:00 11/07/18 08:03 1 TAB Albuterol/ Ipratropium (Duoneb) 3 ml RTQID 11/06/18 12:00 11/07/18 07:14 3 ML Aspirin (Children'S Aspirin) 324 mg 1X ONCE 11/04/18 20:00 11/04/18 20:01 DC 11/04/18 19:55 324 MG Azithromycin 500 mg/Sodium Chloride 250 ml @ 250 mls/hr Q24H 11/06/18 18:00 11/06/18 19:45 250 MLS/HR Doxycycline Hyclate (Vibra-Tab) 100 mg BID 11/06/18 11:00 11/07/18 08:03 100 MG Info (CONTRAST GIVEN -- Rx MONITORING) 1 each PRN DAILY PRN 11/04/18 21:00 11/06/18 20:59 DC Iohexol (Omnipaque 350 Mg/ml) 100 ml 1X ONCE 11/04/18 21:15 11/04/18 21:16 DC 11/04/18 21:31 100 ML Ketorolac Tromethamine (Toradol 30mg Vial) 30 mg 1X ONCE 11/04/18 20:00 11/04/18 20:01 DC 11/04/18 19:55 30 MG Lactulose (Lactulose) 20 gm TID 11/06/18 09:00 11/06/18 20:54 20 GM Magnesium Sulfate 50 ml @ 25 mls/hr 1X ONCE 11/05/18 11:00 11/05/18 12:59 DC 11/05/18 11:04 25 MLS/HR Magnesium Sulfate/ Dextrose 100 ml @ 25 mls/hr 1X ONCE 11/06/18 11:45 11/06/18 15:44 DC 11/06/18 15:03 25 MLS/HR Morphine Sulfate (Morphine Sulfate) 4 mg PRN Q2HR PRN 11/05/18 00:00 11/05/18 23:59 DC 11/05/18 23:17 4 MG Nitroglycerin (Nitrostat) 0.4 mg PRN Q5MIN PRN 11/05/18 00:00 11/05/18 23:59 DC Ondansetron HCl (Zofran) 4 mg PRN Q6HRS PRN 11/06/18 11:45 Potassium Chloride/Water 100 ml @ 100 mls/hr Q1H 11/07/18 09:00 11/07/18 12:59 11/07/18 09:00 100 MLS/HR Potassium Chloride (Klor-Con) 40 meq 1X ONCE 11/06/18 09:00 11/06/18 09:01 DC 11/06/18 09:47 40 MEQ Sodium Chloride 1,000 ml @ 100 mls/hr Q10H 11/04/18 23:55 11/05/18 11:09 DC 11/05/18 03:32 100 MLS/HR Labs: Lab Laboratory Tests Test 11/07/18 04:40 White Blood Count 11.5 x10^3/uL (4.0-11.0) Red Blood Count 2.67 x10^6/uL (3.50-5.40) Hemoglobin 8.3 g/dL (12.0-15.5) Hematocrit 26.3 % (36.0-47.0) Mean Corpuscular Volume 99 fL (79-100) Mean Corpuscular Hemoglobin 31 pg (25-35) Mean Corpuscular Hemoglobin Concent 32 g/dL (31-37) Red Cell Distribution Width 34.5 % (11.5-14.5) Platelet Count 257 x10^3/uL (140-400) Neutrophils (%) (Auto) 69 % (31-73) Lymphocytes (%) (Auto) 20 % (24-48) Monocytes (%) (Auto) 10 % (0-9) Eosinophils (%) (Auto) 1 % (0-3) Basophils (%) (Auto) 0 % (0-3) Neutrophils # (Auto) 8.0 x10^3/uL (1.8-7.7) Lymphocytes # (Auto) 2.3 x10^3/uL (1.0-4.8) Monocytes # (Auto) 1.1 x10^3/uL (0.0-1.1) Eosinophils # (Auto) 0.1 x10^3/uL (0.0-0.7) Basophils # (Auto) 0.0 x10^3/uL (0.0-0.2) Sodium Level 136 mmol/L (136-145) Potassium Level 3.4 mmol/L (3.5-5.1) Chloride Level 97 mmol/L (98-107) Carbon Dioxide Level 23 mmol/L (21-32) Anion Gap 16 (6-14) Blood Urea Nitrogen 5 mg/dL (7-20) Creatinine 0.8 mg/dL (0.6-1.0) Estimated GFR (Cockcroft-Gault) 93.4 Glucose Level 80 mg/dL (70-99) Calcium Level 7.6 mg/dL (8.5-10.1) Magnesium Level 2.1 mg/dL (1.8-2.4) Total Bilirubin 9.1 mg/dL (0.2-1.0) Direct Bilirubin 7.3 mg/dL (0.0-0.2) Aspartate Amino Transf (AST/SGOT) 213 U/L (15-37) Alanine Aminotransferase (ALT/SGPT) 28 U/L (14-59) Alkaline Phosphatase 518 U/L (46-116) Total Protein 7.0 g/dL (6.4-8.2) Albumin 2.4 g/dL (3.4-5.0) Thyroid Stimulating Hormone (TSH) 2.291 uIU/mL (0.358-3.74) Objective: Assessment: 1. Cough for 2 weeks, Mycoplasma + 2. Abn LFT,jaundice Hepatic steatosis, h/o heavy alcohol use Chronic constipation Plan: Plan of Care cont doxy f/u serologies GI following D/W RN Dr Dr Te LUCIO,PAYTON Carrasco MD Nov 07, 2018 10:35
[2018-11-07 11:04] LABS: % BANDS 2 % (0-9); % EOS 2 % (0-5); % LYMPHS 10 % (24-48); % METAS 1 % (0-0); % MONOS 3 % (0-10); % SEGS 82 % (35-66)
[2018-11-07 11:05] LABS: ANISOCYTOSIS PRESENT; PLT ESTIMATE ADEQUATE (ADEQUATE); POLYCHROMASIA SLIGHT
[2018-11-07 11:06] LABS: TARGET CELLS MANY
[2018-11-07 11:59] VITALS: BP 119/78
[2018-11-07] MEDS: KETOROLAC 30 MG/ML VIAL. IV PRN ×2 (15:10→20:48)
[2018-11-07 15:59] VITALS: BP 113/62
[2018-11-07 19:00] VITALS: BP 100/50
[2018-11-07 22:52] VITALS: BP 117/75
[2018-11-08] MEDS: HYDROcodone/APAP 5/325MG 1 TAB TABLET PO PRN ×3 (01:01→23:55)
--- NOTE | 2018-11-08 02:01 | NUR ---
Patient continues to have abd/epigastric pain, this securities underwriter notes that a small bag that has spicy pickle, on bedside table, not sure if patient ate of it, or her visitors here earlier this shift. Monitoring pain.
[2018-11-08 03:00] VITALS: BP_SYST 112; BP_SYST 133; BP_DIAS 63; BP_DIAS 68
[2018-11-08] MEDS: KETOROLAC 30 MG/ML VIAL. IV PRN ×2 (03:24→11:05)
[2018-11-08 06:02] LABS: CALCIUM 7.5 mg/dL (8.5-10.1); CREATININE 0.7 mg/dL (0.6-1.0); POTASSIUM 3.1 mmol/L (3.5-5.1)
[2018-11-08 07:00] VITALS: BP 127/82
[2018-11-08 07:14] LABS: BASO % 0 % (0-3); EOS # 0.1 x10^3/uL (0.0-0.7); EOS % 1 % (0-3); HEMATOCRIT 24.2 % (36.0-47.0); HEMOGLOBIN 7.9 g/dL (12.0-15.5); LYMPH # 3.6 x10^3/uL (1.0-4.8); LYMPH % 36 % (24-48); MEAN CORPUSCULAR HEMOGLOBIN 32 pg (25-35); MEAN CORPUSCULAR HGB CONC 33 g/dL (31-37); MEAN CORPUSCULAR VOLUME 98 fL (79-100); MONO # 1.1 x10^3/uL (0.0-1.1); MONO % 11 % (0-9); NEUT # 5.3 x10^3/uL (1.8-7.7); NEUT % 52 % (31-73); PLATELET COUNT 266 x10^3/uL (140-400); RED BLOOD COUNT 2.46 x10^6/uL (3.50-5.40); RED CELL DISTRIBUTION WIDTH 34.7 % (11.5-14.5)
[2018-11-08] MEDS: IPRATRPIUM/ALBUTEROL 0.5/2.5MG 3 ML NEBU. NEB SCH ×4 (07:24→19:48)
[2018-11-08] MEDS: LACTULOSE 20 GM/30 ML SOLUTION. PO SCH ×3 (08:11→21:00)
[2018-11-08] MEDS: DOXYCYCLINE HYCLATE 100 MG TABLET PO SCH ×2 (08:11→20:46)
[2018-11-08] MEDS ORDERED: ACETAMINOPHEN/CODEINE 300/30MG TABLET. PO PRN (09:00)
[2018-11-08] MEDS ORDERED: ZOLPIDEM 5 MG TABLET. PO PRN (09:00)
[2018-11-08] MEDS ORDERED: ACETAMINOPHEN 500 MG TABLET PO PRN (09:00)
[2018-11-08] MEDS: IV NORMAL SALINE 1000ML BAG 1,000 ML IV SCH ×2 (09:16→20:47)
[2018-11-08] MEDS ORDERED: POTASSIUM CHLORIDE 20 MEQ TABLET.ER. PO ONE (10:00)
--- NOTE | 2018-11-08 10:05 | PDOC ---
PROGRESS NOTES Chief Complaint Chief Complaint Cough, Mycoplasma positive Vomiting abdominal pain-resolved Jaundice, transaminitis Hepatic steatosis Chronic constipation History seizure disorder-chronic stable COPD-chronic stable Hypokalemia hypomagnesemia corrected Anemia of chronic disease Poor appetite v History of Present Illness History of Present Illness Poor by mouth intake and not feeling well K3.1 No emesis so far today No fevers WBC 7 ID on board on Doxy IV every 12 complains of gross hematuria BAck pain and abd pain continues 1. Liver is echogenic. Nonspecific but can be seen with fatty infiltration. Heterogenous appearance of the liver with large portions not well seen secondary to poor beam penetration. Cannot exclude liver lesion on this exam. Gallbladder somewhat distended with wall thickening. This wall thickening could be reactive to adjacent hepatic disease, primary gallbladder inflammation or a systemic process such as hypoproteinemia. If there is clinical concern for acute cholecystitis and further information is desired nuclear hepatobiliary scan could BE obtained. Plan: bowel regimen KCl 40�1 IM considering HIDA scan - will order CHeck UA re that gross hematuria- 0 blood in last UA x 2 Start some saline to address the poor by mouth an elyte abnormalities She complains to me of gross hematuria-check UA- NPO post MN for HIDA ddw RN Vitals Vitals Vital Signs Date Time Temp Pulse Resp B/P (MAP) Pulse Ox O2 Delivery O2 Flow Rate FiO2 11/08/18 09:22 Room Air 11/08/18 07:26 98 11/08/18 07:00 98.2 73 18 127/82 (97) 98.2 11/07/18 22:52 3.0 Physical Exam Physical Exam GENERAL: Alert, oriented female, not in distress. VITAL SIGNS: Stable, afebrile. HEENT: NAD. NECK: Supple, no JVP, no lymphadenopathy. LUNGS: Clear. HEART: S1, S2 regular. ABDOMEN: Soft, mild right upper quadrant tenderness present. No organomegaly, no rebound, no guarding. EXTREMITIES: No edema, cyanosis. SKIN: Unremarkable. NEUROLOGIC: Alert, awake and appropriate. No focal neurologic defici General: Alert, Oriented X3, Cooperative, No acute distress Heart: Regular rate (SR), Normal S1, Normal S2 Lungs: Clear Abdomen: Soft, Other (RUQ tenderness with palpation) Extremities: No cyanosis, No edema Skin: No breakdown, No significant lesion Labs LABS Laboratory Tests Test 11/08/18 05:20 White Blood Count 10.0 x10^3/uL (4.0-11.0) Red Blood Count 2.46 x10^6/uL (3.50-5.40) Hemoglobin 7.9 g/dL (12.0-15.5) Hematocrit 24.2 % (36.0-47.0) Mean Corpuscular Volume 98 fL (79-100) Mean Corpuscular Hemoglobin 32 pg (25-35) Mean Corpuscular Hemoglobin Concent 33 g/dL (31-37) Red Cell Distribution Width 34.7 % (11.5-14.5) Platelet Count 266 x10^3/uL (140-400) Neutrophils (%) (Auto) 52 % (31-73) Lymphocytes (%) (Auto) 36 % (24-48) Monocytes (%) (Auto) 11 % (0-9) Eosinophils (%) (Auto) 1 % (0-3) Basophils (%) (Auto) 0 % (0-3) Neutrophils # (Auto) 5.3 x10^3/uL (1.8-7.7) Lymphocytes # (Auto) 3.6 x10^3/uL (1.0-4.8) Monocytes # (Auto) 1.1 x10^3/uL (0.0-1.1) Eosinophils # (Auto) 0.1 x10^3/uL (0.0-0.7) Basophils # (Auto) 0.0 x10^3/uL (0.0-0.2) Sodium Level 140 mmol/L (136-145) Potassium Level 3.1 mmol/L (3.5-5.1) Chloride Level 101 mmol/L (98-107) Carbon Dioxide Level 24 mmol/L (21-32) Anion Gap 15 (6-14) Blood Urea Nitrogen 6 mg/dL (7-20) Creatinine 0.7 mg/dL (0.6-1.0) Estimated GFR (Cockcroft-Gault) 109.0 Glucose Level 109 mg/dL (70-99) Calcium Level 7.5 mg/dL (8.5-10.1) Review of Systems Review of Systems nausea, weak, poor by mouth, abdominal pain epigastric and flank pain, no fevers, no cp the rest 14 pt neg Assessment and Plan Assessmemt and Plan Problems Medical Problems: (1) Chest pain Status: Acute (2) Dyspnea Status: Acute (3) Elevated transaminase level Status: Acute (4) Hyperbilirubinemia Status: Acute Comment Review of Relevant I have reviewed the following items gina (where applicable) has been applied. Labs Laboratory Tests Test 11/07/18 04:40 11/08/18 05:20 White Blood Count 11.5 x10^3/uL (4.0-11.0) 10.0 x10^3/uL (4.0-11.0) Red Blood Count 2.67 x10^6/uL (3.50-5.40) 2.46 x10^6/uL (3.50-5.40) Hemoglobin 8.3 g/dL (12.0-15.5) 7.9 g/dL (12.0-15.5) Hematocrit 26.3 % (36.0-47.0) 24.2 % (36.0-47.0) Mean Corpuscular Volume 99 fL (79-100) 98 fL (79-100) Mean Corpuscular Hemoglobin 31 pg (25-35) 32 pg (25-35) Mean Corpuscular Hemoglobin Concent 32 g/dL (31-37) 33 g/dL (31-37) Red Cell Distribution Width 34.5 % (11.5-14.5) 34.7 % (11.5-14.5) Platelet Count 257 x10^3/uL (140-400) 266 x10^3/uL (140-400) Neutrophils (%) (Auto) 69 % (31-73) 52 % (31-73) Lymphocytes (%) (Auto) 20 % (24-48) 36 % (24-48) Monocytes (%) (Auto) 10 % (0-9) 11 % (0-9) Eosinophils (%) (Auto) 1 % (0-3) 1 % (0-3) Basophils (%) (Auto) 0 % (0-3) 0 % (0-3) Neutrophils # (Auto) 8.0 x10^3/uL (1.8-7.7) 5.3 x10^3/uL (1.8-7.7) Lymphocytes # (Auto) 2.3 x10^3/uL (1.0-4.8) 3.6 x10^3/uL (1.0-4.8) Monocytes # (Auto) 1.1 x10^3/uL (0.0-1.1) 1.1 x10^3/uL (0.0-1.1) Eosinophils # (Auto) 0.1 x10^3/uL (0.0-0.7) 0.1 x10^3/uL (0.0-0.7) Basophils # (Auto) 0.0 x10^3/uL (0.0-0.2) 0.0 x10^3/uL (0.0-0.2) Segmented Neutrophils % 82 % (35-66) Band Neutrophils % 2 % (0-9) Lymphocytes % 10 % (24-48) Monocytes % 3 % (0-10) Eosinophils % 2 % (0-5) Metamyelocytes % 1 % (0-0) Platelet Estimate Adequate (ADEQUATE) Polychromasia Slight Anisocytosis Present Target Cells Many Sodium Level 136 mmol/L (136-145) 140 mmol/L (136-145) Potassium Level 3.4 mmol/L (3.5-5.1) 3.1 mmol/L (3.5-5.1) Chloride Level 97 mmol/L (98-107) 101 mmol/L (98-107) Carbon Dioxide Level 23 mmol/L (21-32) 24 mmol/L (21-32) Anion Gap 16 (6-14) 15 (6-14) Blood Urea Nitrogen 5 mg/dL (7-20) 6 mg/dL (7-20) Creatinine 0.8 mg/dL (0.6-1.0) 0.7 mg/dL (0.6-1.0) Estimated GFR (Cockcroft-Gault) 93.4 109.0 Glucose Level 80 mg/dL (70-99) 109 mg/dL (70-99) Calcium Level 7.6 mg/dL (8.5-10.1) 7.5 mg/dL (8.5-10.1) Magnesium Level 2.1 mg/dL (1.8-2.4) Total Bilirubin 9.1 mg/dL (0.2-1.0) Direct Bilirubin 7.3 mg/dL (0.0-0.2) Aspartate Amino Transf (AST/SGOT) 213 U/L (15-37) Alanine Aminotransferase (ALT/SGPT) 28 U/L (14-59) Alkaline Phosphatase 518 U/L (46-116) Total Protein 7.0 g/dL (6.4-8.2) Albumin 2.4 g/dL (3.4-5.0) Thyroid Stimulating Hormone (TSH) 2.291 uIU/mL (0.358-3.74) Laboratory Tests Test 11/08/18 05:20 White Blood Count 10.0 x10^3/uL (4.0-11.0) Red Blood Count 2.46 x10^6/uL (3.50-5.40) Hemoglobin 7.9 g/dL (12.0-15.5) Hematocrit 24.2 % (36.0-47.0) Mean Corpuscular Volume 98 fL (79-100) Mean Corpuscular Hemoglobin 32 pg (25-35) Mean Corpuscular Hemoglobin Concent 33 g/dL (31-37) Red Cell Distribution Width 34.7 % (11.5-14.5) Platelet Count 266 x10^3/uL (140-400) Neutrophils (%) (Auto) 52 % (31-73) Lymphocytes (%) (Auto) 36 % (24-48) Monocytes (%) (Auto) 11 % (0-9) Eosinophils (%) (Auto) 1 % (0-3) Basophils (%) (Auto) 0 % (0-3) Neutrophils # (Auto) 5.3 x10^3/uL (1.8-7.7) Lymphocytes # (Auto) 3.6 x10^3/uL (1.0-4.8) Monocytes # (Auto) 1.1 x10^3/uL (0.0-1.1) Eosinophils # (Auto) 0.1 x10^3/uL (0.0-0.7) Basophils # (Auto) 0.0 x10^3/uL (0.0-0.2) Sodium Level 140 mmol/L (136-145) Potassium Level 3.1 mmol/L (3.5-5.1) Chloride Level 101 mmol/L (98-107) Carbon Dioxide Level 24 mmol/L (21-32) Anion Gap 15 (6-14) Blood Urea Nitrogen 6 mg/dL (7-20) Creatinine 0.7 mg/dL (0.6-1.0) Estimated GFR (Cockcroft-Gault) 109.0 Glucose Level 109 mg/dL (70-99) Calcium Level 7.5 mg/dL (8.5-10.1) Medications Current Medications Aspirin (Children'S Aspirin) 324 mg 1X ONCE PO Last administered on 11/04/18at 19:55; Start 11/04/18 at 20:00; Stop 11/04/18 at 20:01; Status DC Sodium Chloride 1,000 ml @ 1,000 mls/hr Q1H IV Last administered on 11/04/18at 19:55; Start 11/04/18 at 20:00; Stop 11/04/18 at 20:59; Status DC Ketorolac Tromethamine (Toradol 30mg Vial) 30 mg 1X ONCE IV Last administered on 11/04/18at 19:55; Start 11/04/18 at 20:00; Stop 11/04/18 at 20:01; Status DC Magnesium Sulfate 50 ml @ 25 mls/hr 1X ONCE IV Last administered on 11/04/18at 21:10; Start 11/04/18 at 21:00; Stop 11/04/18 at 22:59; Status DC Iohexol (Omnipaque 350 Mg/ml) 100 ml 1X ONCE IV Last administered on 11/04/18at 21:31; Start 11/04/18 at 21:15; Stop 11/04/18 at 21:16; Status DC Info (CONTRAST GIVEN -- Rx MONITORING) 1 each PRN DAILY PRN MC SEE COMMENTS; Start 11/04/18 at 21:00; Stop 11/06/18 at 20:59; Status DC Ondansetron HCl (Zofran) 4 mg PRN Q8HRS PRN IV NAUSEA/VOMITING; Start 11/05/18 at 00:00; Stop 11/05/18 at 23:59; Status DC Morphine Sulfate (Morphine Sulfate) 4 mg PRN Q2HR PRN IV PAIN Last administered on 11/05/18at 23:17; Start 11/05/18 at 00:00; Stop 11/05/18 at 23:59; Status DC Sodium Chloride 1,000 ml @ 100 mls/hr Q10H IV Last administered on 11/05/18 03:32; Start 11/04/18 at 23:55; Stop 11/05/18 at 11:09; Status DC Nitroglycerin (Nitrostat) 0.4 mg PRN Q5MIN PRN SL CHEST PAIN; Start 11/05/18 at 00:00; Stop 11/05/18 at 23:59; Status DC Albuterol/ Ipratropium (Duoneb) 3 ml RTQID NEB Last administered on 11/06/18 07:12; Start 11/05/18 at 08:00; Stop 11/06/18 at 07:59; Status DC Magnesium Sulfate 50 ml @ 25 mls/hr 1X ONCE IV Last administered on 11/05/18 11:04; Start 11/05/18 at 11:00; Stop 11/05/18 at 12:59; Status DC Acetaminophen/ Hydrocodone Bitart (Lortab 5/325) 1 tab PRN Q4HRS PRN PO PAIN Last administered on 11/08/18 08:11; Start 11/05/18 at 20:00 Lactulose (Lactulose) 20 gm TID PO Last administered on 11/06/18 20:54; Start 11/06/18 at 09:00 Potassium Chloride (Klor-Con) 40 meq 1X ONCE PO Last administered on 11/06/18 09:47; Start 11/06/18 at 09:00; Stop 11/06/18 at 09:01; Status DC Potassium Chloride/Water 100 ml @ 100 mls/hr Q1H IV Last administered on 11/06/18 09:51; Start 11/06/18 at 09:00; Stop 11/06/18 at 10:59; Status DC Doxycycline Hyclate (Vibra-Tab) 100 mg BID PO Last administered on 11/08/18 08:11; Start 11/06/18 at 11:00 Albuterol/ Ipratropium (Duoneb) 3 ml RTQID NEB Last administered on 11/08/18 07:24; Start 11/06/18 at 12:00 Ondansetron HCl (Zofran) 4 mg PRN Q6HRS PRN IV NAUSEA/VOMITING; Start 11/06/18 at 11:45 Magnesium Sulfate/ Dextrose 100 ml @ 25 mls/hr 1X ONCE IV Last administered on 11/06/18at 15:03; Start 11/06/18 at 11:45; Stop 11/06/18 at 15:44; Status DC Azithromycin 500 mg/Sodium Chloride 250 ml @ 250 mls/hr Q24H IV Last administered on 11/06/18at 19:45; Start 11/06/18 at 18:00; Stop 11/07/18 at 16:05; Status DC Potassium Chloride/Water 100 ml @ 100 mls/hr Q1H IV Last administered on 11/07/18at 10:00; Start 11/07/18 at 09:00; Stop 11/07/18 at 12:59; Status DC Ketorolac Tromethamine (Toradol 30mg Vial) 30 mg PRN Q6HRS PRN IV PAIN Last administered on 11/07/18at 15:10; Start 11/07/18 at 15:00 Acetaminophen (Tylenol) 500 mg PRN Q6HRS PRN PO HEADACHE / TEMP; Start 11/08/18 at 09:00 Acetaminophen/ Codeine Phosphate (Tylenol #3) 1 tab PRN Q6HRS PRN PO MILD PAIN 1-3; Start 11/08/18 at 09:00 Zolpidem Tartrate (Ambien) 5 mg PRN QHS PRN PO INSOMNIA; Start 11/08/18 at 09:00 Potassium Chloride (Klor-Con) 40 meq 1X ONCE PO Last administered on 11/08/18at 09:16; Start 11/08/18 at 10:00; Stop 11/08/18 at 10:01 Sodium Chloride 1,000 ml @ 100 mls/hr Q10H IV Last administered on 11/08/18at 09:16; Start 11/08/18 at 09:00 Active Scripts Active Ventolin Hfa Inhaler (Albuterol Sulfate) 18 Gm Hfa.aer.ad 2 Puff INH Q4HRS Reported Senokot (Sennosides) 8.6 Mg Tablet 8.6 Mg PO PRN BID PRN Tums (Calcium Carbonate) 300 Mg Tab.chew 300 Mg PO PRN Q2HR PRN Gas-X (Simethicone) 62.5 Mg Strip 62.5 Mg PO PRN Q2HR PRN Ibuprofen 400 Mg Tablet 400 Mg PO PRN Q6HRS PRN Vitals/I & O Vital Sign - Last 24 Hours 11/07/18 11/07/18 11/07/18 11/07/18 11:18 11:59 15:14 15:59 Temp 97.9 98.6 97.9 98.6 Pulse 103 95 Resp 18 18 B/P (MAP) 119/78 (92) 113/62 (79) Pulse Ox 99 97 99 96 O2 Delivery Room Air Room Air Room Air Room Air 11/07/18 11/07/18 11/07/18 11/07/18 19:00 19:44 20:20 22:52 Temp 98.1 98.1 98.1 98.1 Pulse 95 107 Resp 18 18 B/P (MAP) 100/50 (67) 117/75 (89) Pulse Ox 100 100 98 O2 Delivery Room Air Room Air Room Air Room Air O2 Flow Rate 3.0 3.0 11/08/18 11/08/18 11/08/18 11/08/18 01:01 02:01 03:00 07:00 Temp 98.6 98.2 98.6 98.2 Pulse 98 73 Resp 18 18 20 18 B/P (MAP) 112/68 (83) 127/82 (97) Pulse Ox 98 99 98 O2 Delivery Room Air Room Air Room Air 11/08/18 11/08/18 11/08/18 07:26 08:00 09:22 Pulse Ox 98 O2 Delivery Room Air Room Air Room Air Intake and Output 11/07/18 11/07/18 11/08/18 15:00 23:00 07:00 Intake Total 300 ml Balance 300 ml MELANIE PIEDRA MD Nov 08, 2018 10:04
[2018-11-08 10:48] VITALS: BP 113/71
--- NOTE | 2018-11-08 13:14 | PDOC ---
Infectious Disease Note Subjective Subjective pt continues to feel the same no apetite poor po intake no f/c Vital Sign Vital Signs Vital Signs Date Time Temp Pulse Resp B/P (MAP) Pulse Ox O2 Delivery O2 Flow Rate FiO2 11/08/18 11:35 Room Air 11/08/18 10:48 98.0 100 18 113/71 (85) 96 98.0 11/07/18 22:52 3.0 Physical Exam PHYSICAL EXAM GENERAL: Alert, oriented female, not in distress. VITAL SIGNS: Stable, afebrile. HEENT: NAD. NECK: Supple, no JVP, no lymphadenopathy. LUNGS: Clear. HEART: S1, S2 regular. ABDOMEN: Soft, mild right upper quadrant tenderness present. No organomegaly, no rebound, no guarding. EXTREMITIES: No edema, cyanosis. SKIN: Unremarkable. NEUROLOGIC: Alert, awake and appropriate. No focal neurologic defici Labs Lab Laboratory Tests Test 11/08/18 05:20 White Blood Count 10.0 x10^3/uL (4.0-11.0) Red Blood Count 2.46 x10^6/uL (3.50-5.40) Hemoglobin 7.9 g/dL (12.0-15.5) Hematocrit 24.2 % (36.0-47.0) Mean Corpuscular Volume 98 fL (79-100) Mean Corpuscular Hemoglobin 32 pg (25-35) Mean Corpuscular Hemoglobin Concent 33 g/dL (31-37) Red Cell Distribution Width 34.7 % (11.5-14.5) Platelet Count 266 x10^3/uL (140-400) Neutrophils (%) (Auto) 52 % (31-73) Lymphocytes (%) (Auto) 36 % (24-48) Monocytes (%) (Auto) 11 % (0-9) Eosinophils (%) (Auto) 1 % (0-3) Basophils (%) (Auto) 0 % (0-3) Neutrophils # (Auto) 5.3 x10^3/uL (1.8-7.7) Lymphocytes # (Auto) 3.6 x10^3/uL (1.0-4.8) Monocytes # (Auto) 1.1 x10^3/uL (0.0-1.1) Eosinophils # (Auto) 0.1 x10^3/uL (0.0-0.7) Basophils # (Auto) 0.0 x10^3/uL (0.0-0.2) Sodium Level 140 mmol/L (136-145) Potassium Level 3.1 mmol/L (3.5-5.1) Chloride Level 101 mmol/L (98-107) Carbon Dioxide Level 24 mmol/L (21-32) Anion Gap 15 (6-14) Blood Urea Nitrogen 6 mg/dL (7-20) Creatinine 0.7 mg/dL (0.6-1.0) Estimated GFR (Cockcroft-Gault) 109.0 Glucose Level 109 mg/dL (70-99) Calcium Level 7.5 mg/dL (8.5-10.1) Objective Assessment Cough with jael pulmonary infiltrate, Mycoplasma + Elevated LFT COPD Seizure disorder Plan Plan of Care cont doxy f/u serologies GI following MATTHEW LUCIO MD Nov 08, 2018 13:14
[2018-11-08 14:52] VITALS: BP 115/78
[2018-11-08 19:00] VITALS: BP 120/74
[2018-11-08 22:47] VITALS: BP 118/69
[2018-11-09 03:00] VITALS: BP 93/69
[2018-11-09 07:00] VITALS: BP 115/70
[2018-11-09 07:39] LABS: HEMOGLOBIN 7.9 g/dL (12.0-15.5); MEAN CORPUSCULAR HEMOGLOBIN 32 pg (25-35); MEAN CORPUSCULAR HGB CONC 33 g/dL (31-37); MEAN CORPUSCULAR VOLUME 98 fL (79-100); PLATELET COUNT 272 x10^3/uL (140-400); RED BLOOD COUNT 2.45 x10^6/uL (3.50-5.40); RED CELL DISTRIBUTION WIDTH 33.8 % (11.5-14.5); WHITE BLOOD COUNT 8.8 x10^3/uL (4.0-11.0)
[2018-11-09 07:58] LABS: ALBUMIN 2.1 g/dL (3.4-5.0); ALBUMIN/GLOBULIN RATIO 0.5 (1.0-1.7); CALCIUM 7.4 mg/dL (8.5-10.1); CREATININE 0.6 mg/dL (0.6-1.0); GFR 130.2; POTASSIUM 3.3 mmol/L (3.5-5.1); TOTAL BILIRUBIN 7.1 mg/dL (0.2-1.0); TOTAL PROTEIN 6.5 g/dL (6.4-8.2)
--- NOTE | 2018-11-09 08:28 | PDOC ---
Infectious Disease Note Subjective: Subjective pt continues to feel the same no appetite poor po intake no f/c ROS: ROS Negative except for above. Vital Signs: Vital Signs Vital Signs Date Time Temp Pulse Resp B/P (MAP) Pulse Ox O2 Delivery O2 Flow Rate FiO2 11/09/18 07:00 98.5 91 16 115/70 (85) 93 Room Air 98.5 11/09/18 03:00 3.0 Physical Exam: PHYSICAL EXAM GENERAL: Alert, oriented female, not in distress. VITAL SIGNS: Stable, afebrile. HEENT: NAD. NECK: Supple, no JVP, no lymphadenopathy. LUNGS: Clear. HEART: S1, S2 regular. ABDOMEN: Soft, mild right upper quadrant tenderness present. No organomegaly, no rebound, no guarding. EXTREMITIES: No edema, cyanosis. SKIN: Unremarkable. NEUROLOGIC: Alert, awake and appropriate. No focal neurologic defici Medications: Inpatient Meds: Current Medications Medications (Trade) Dose Ordered Sig/Francisco Start Time Stop Time Status Last Admin Dose Admin Acetaminophen (Tylenol) 500 mg PRN Q6HRS PRN 11/08/18 09:00 Acetaminophen/ Codeine Phosphate (Tylenol #3) 1 tab PRN Q6HRS PRN 11/08/18 09:00 Acetaminophen/ Hydrocodone Bitart (Lortab 5/325) 1 tab PRN Q4HRS PRN 11/05/18 20:00 11/08/18 23:55 1 TAB Albuterol/ Ipratropium (Duoneb) 3 ml RTQID 11/06/18 12:00 11/08/18 19:48 3 ML Aspirin (Children'S Aspirin) 324 mg 1X ONCE 11/04/18 20:00 11/04/18 20:01 DC 11/04/18 19:55 324 MG Azithromycin 500 mg/Sodium Chloride 250 ml @ 250 mls/hr Q24H 11/06/18 18:00 11/07/18 16:05 DC 11/06/18 19:45 250 MLS/HR Doxycycline Hyclate (Vibra-Tab) 100 mg BID 11/06/18 11:00 11/08/18 20:46 100 MG Info (CONTRAST GIVEN -- Rx MONITORING) 1 each PRN DAILY PRN 11/04/18 21:00 11/06/18 20:59 DC Iohexol (Omnipaque 350 Mg/ml) 100 ml 1X ONCE 11/04/18 21:15 11/04/18 21:16 DC 11/04/18 21:31 100 ML Ketorolac Tromethamine (Toradol 30mg Vial) 30 mg PRN Q6HRS PRN 11/07/18 15:00 11/08/18 11:05 30 MG Lactulose (Lactulose) 20 gm TID 11/06/18 09:00 11/06/18 20:54 20 GM Magnesium Sulfate 50 ml @ 25 mls/hr 1X ONCE 11/05/18 11:00 11/05/18 12:59 DC 11/05/18 11:04 25 MLS/HR Magnesium Sulfate/ Dextrose 100 ml @ 25 mls/hr 1X ONCE 11/06/18 11:45 11/06/18 15:44 DC 11/06/18 15:03 25 MLS/HR Morphine Sulfate (Morphine Sulfate) 4 mg PRN Q2HR PRN 11/05/18 00:00 11/05/18 23:59 DC 11/05/18 23:17 4 MG Nitroglycerin (Nitrostat) 0.4 mg PRN Q5MIN PRN 11/05/18 00:00 11/05/18 23:59 DC Ondansetron HCl (Zofran) 4 mg PRN Q6HRS PRN 11/06/18 11:45 Potassium Chloride/Water 100 ml @ 100 mls/hr Q1H 11/07/18 09:00 11/07/18 12:59 DC 11/07/18 10:00 100 MLS/HR Potassium Chloride (Klor-Con) 40 meq 1X ONCE 11/08/18 10:00 11/08/18 10:01 DC 11/08/18 09:16 40 MEQ Sodium Chloride 1,000 ml @ 100 mls/hr Q10H 11/08/18 09:00 11/08/18 20:47 100 MLS/HR Zolpidem Tartrate (Ambien) 5 mg PRN QHS PRN 11/08/18 09:00 11/08/18 23:55 5 MG Labs: Lab Laboratory Tests Test 11/09/18 06:47 Sodium Level 140 mmol/L (136-145) Potassium Level 3.3 mmol/L (3.5-5.1) Chloride Level 104 mmol/L (98-107) Carbon Dioxide Level 25 mmol/L (21-32) Anion Gap 11 (6-14) Blood Urea Nitrogen 6 mg/dL (7-20) Creatinine 0.6 mg/dL (0.6-1.0) Estimated GFR (Cockcroft-Gault) 130.2 BUN/Creatinine Ratio 10 (6-20) Glucose Level 89 mg/dL (70-99) Calcium Level 7.4 mg/dL (8.5-10.1) Total Bilirubin 7.1 mg/dL (0.2-1.0) Aspartate Amino Transf (AST/SGOT) 139 U/L (15-37) Alanine Aminotransferase (ALT/SGPT) 24 U/L (14-59) Alkaline Phosphatase 448 U/L (46-116) Total Protein 6.5 g/dL (6.4-8.2) Albumin 2.1 g/dL (3.4-5.0) Albumin/Globulin Ratio 0.5 (1.0-1.7) Objective: Assessment: 1. Cough for 2 weeks, Mycoplasma + 2. Abn LFT,jaundice Hepatic steatosis, h/o heavy alcohol use Chronic constipation Plan: Plan of Care cont doxy f/u serologies GI following PAYTON LUCIO MD Nov 09, 2018 08:28
[2018-11-09] MEDS ORDERED: MORPHINE SULFATE 4 MG/ML VIAL. ONE (08:52)
[2018-11-09] MEDS ORDERED: MORPHINE SULFATE 4 MG/ML VIAL. IV ONE (09:00)
[2018-11-09 09:59] LABS: % BANDS 2 % (0-9); % EOS 1 % (0-5); % LYMPHS 20 % (24-48); % MONOS 7 % (0-10); % SEGS 70 % (35-66); NUCLEATED RBC 1
[2018-11-09 10:00] LABS: PLT ESTIMATE ADEQUATE (ADEQUATE)
[2018-11-09 10:01] LABS: ANISOCYTOSIS SLIGHT; POIKILOCYTOSIS PRESENT; POLYCHROMASIA PRESENT
[2018-11-09 10:02] LABS: TARGET CELLS MANY
[2018-11-09] MEDS ORDERED: HYDR-2761 PO (10:13)
[2018-11-09] MEDS ORDERED: DOXY100T PO (10:13)
--- NOTE | 2018-11-09 10:22 | PDOC ---
PROGRESS NOTES Chief Complaint Chief Complaint Cough, Mycoplasma positive Vomiting abdominal pain-resolved Jaundice, transaminitis Hepatic steatosis Chronic constipation History seizure disorder-chronic stable COPD-chronic stable Hypokalemia hypomagnesemia corrected Anemia of chronic disease Poor appetite v History of Present Illness History of Present Illness STill intermittent abd pain HIDA done but still pending SHe would like to go home CMV ab positive and mycoplasma pos ON doxy PO BID K better after replacement PLAN:Await HIDA< if normal may go home IF low GB EF, will need GS consult dw her- agrees COnt PO doxy Rx on chart Vitals Vitals Vital Signs Date Time Temp Pulse Resp B/P (MAP) Pulse Ox O2 Delivery O2 Flow Rate FiO2 11/09/18 08:58 22 11/09/18 07:00 98.5 91 115/70 (85) 93 Room Air 98.5 11/09/18 03:00 3.0 Physical Exam Physical Exam GENERAL: Alert, oriented female, not in distress. VITAL SIGNS: Stable, afebrile. HEENT: NAD. NECK: Supple, no JVP, no lymphadenopathy. LUNGS: Clear. HEART: S1, S2 regular. ABDOMEN: Soft, mild right upper quadrant tenderness present. No organomegaly, no rebound, no guarding. EXTREMITIES: No edema, cyanosis. SKIN: Unremarkable. NEUROLOGIC: Alert, awake and appropriate. No focal neurologic defici General: Alert, Oriented X3, Cooperative, No acute distress Heart: Regular rate (SR), Normal S1, Normal S2 Lungs: Clear Abdomen: Soft, Other (RUQ tenderness with palpation) Extremities: No cyanosis, No edema Skin: No breakdown, No significant lesion Labs LABS Laboratory Tests Test 11/09/18 06:47 White Blood Count 8.8 x10^3/uL (4.0-11.0) Red Blood Count 2.45 x10^6/uL (3.50-5.40) Hemoglobin 7.9 g/dL (12.0-15.5) Hematocrit 24.0 % (36.0-47.0) Mean Corpuscular Volume 98 fL (79-100) Mean Corpuscular Hemoglobin 32 pg (25-35) Mean Corpuscular Hemoglobin Concent 33 g/dL (31-37) Red Cell Distribution Width 33.8 % (11.5-14.5) Platelet Count 272 x10^3/uL (140-400) Segmented Neutrophils % 70 % (35-66) Band Neutrophils % 2 % (0-9) Lymphocytes % 20 % (24-48) Monocytes % 7 % (0-10) Eosinophils % 1 % (0-5) Nucleated Red Blood Cells 1 Platelet Estimate Adequate (ADEQUATE) Large Platelets Few Polychromasia Present Poikilocytosis Present Anisocytosis Slight Macrocytosis Slight Target Cells Many Sodium Level 140 mmol/L (136-145) Potassium Level 3.3 mmol/L (3.5-5.1) Chloride Level 104 mmol/L (98-107) Carbon Dioxide Level 25 mmol/L (21-32) Anion Gap 11 (6-14) Blood Urea Nitrogen 6 mg/dL (7-20) Creatinine 0.6 mg/dL (0.6-1.0) Estimated GFR (Cockcroft-Gault) 130.2 BUN/Creatinine Ratio 10 (6-20) Glucose Level 89 mg/dL (70-99) Calcium Level 7.4 mg/dL (8.5-10.1) Total Bilirubin 7.1 mg/dL (0.2-1.0) Aspartate Amino Transf (AST/SGOT) 139 U/L (15-37) Alanine Aminotransferase (ALT/SGPT) 24 U/L (14-59) Alkaline Phosphatase 448 U/L (46-116) Total Protein 6.5 g/dL (6.4-8.2) Albumin 2.1 g/dL (3.4-5.0) Albumin/Globulin Ratio 0.5 (1.0-1.7) Review of Systems Review of Systems abd pain, poor po, no emesis, no fevers, no cp, no soa - the rest 14 pt neg Assessment and Plan Assessmemt and Plan Problems Medical Problems: (1) Chest pain Status: Acute (2) Dyspnea Status: Acute (3) Elevated transaminase level Status: Acute (4) Hyperbilirubinemia Status: Acute Comment Review of Relevant I have reviewed the following items gina (where applicable) has been applied. Labs Laboratory Tests Test 11/08/18 05:20 11/09/18 06:47 White Blood Count 10.0 x10^3/uL (4.0-11.0) 8.8 x10^3/uL (4.0-11.0) Red Blood Count 2.46 x10^6/uL (3.50-5.40) 2.45 x10^6/uL (3.50-5.40) Hemoglobin 7.9 g/dL (12.0-15.5) 7.9 g/dL (12.0-15.5) Hematocrit 24.2 % (36.0-47.0) 24.0 % (36.0-47.0) Mean Corpuscular Volume 98 fL (79-100) 98 fL (79-100) Mean Corpuscular Hemoglobin 32 pg (25-35) 32 pg (25-35) Mean Corpuscular Hemoglobin Concent 33 g/dL (31-37) 33 g/dL (31-37) Red Cell Distribution Width 34.7 % (11.5-14.5) 33.8 % (11.5-14.5) Platelet Count 266 x10^3/uL (140-400) 272 x10^3/uL (140-400) Neutrophils (%) (Auto) 52 % (31-73) Lymphocytes (%) (Auto) 36 % (24-48) Monocytes (%) (Auto) 11 % (0-9) Eosinophils (%) (Auto) 1 % (0-3) Basophils (%) (Auto) 0 % (0-3) Neutrophils # (Auto) 5.3 x10^3/uL (1.8-7.7) Lymphocytes # (Auto) 3.6 x10^3/uL (1.0-4.8) Monocytes # (Auto) 1.1 x10^3/uL (0.0-1.1) Eosinophils # (Auto) 0.1 x10^3/uL (0.0-0.7) Basophils # (Auto) 0.0 x10^3/uL (0.0-0.2) Sodium Level 140 mmol/L (136-145) 140 mmol/L (136-145) Potassium Level 3.1 mmol/L (3.5-5.1) 3.3 mmol/L (3.5-5.1) Chloride Level 101 mmol/L (98-107) 104 mmol/L (98-107) Carbon Dioxide Level 24 mmol/L (21-32) 25 mmol/L (21-32) Anion Gap 15 (6-14) 11 (6-14) Blood Urea Nitrogen 6 mg/dL (7-20) 6 mg/dL (7-20) Creatinine 0.7 mg/dL (0.6-1.0) 0.6 mg/dL (0.6-1.0) Estimated GFR (Cockcroft-Gault) 109.0 130.2 Glucose Level 109 mg/dL (70-99) 89 mg/dL (70-99) Calcium Level 7.5 mg/dL (8.5-10.1) 7.4 mg/dL (8.5-10.1) Segmented Neutrophils % 70 % (35-66) Band Neutrophils % 2 % (0-9) Lymphocytes % 20 % (24-48) Monocytes % 7 % (0-10) Eosinophils % 1 % (0-5) Nucleated Red Blood Cells 1 Platelet Estimate Adequate (ADEQUATE) Large Platelets Few Polychromasia Present Poikilocytosis Present Anisocytosis Slight Macrocytosis Slight Target Cells Many BUN/Creatinine Ratio 10 (6-20) Total Bilirubin 7.1 mg/dL (0.2-1.0) Aspartate Amino Transf (AST/SGOT) 139 U/L (15-37) Alanine Aminotransferase (ALT/SGPT) 24 U/L (14-59) Alkaline Phosphatase 448 U/L (46-116) Total Protein 6.5 g/dL (6.4-8.2) Albumin 2.1 g/dL (3.4-5.0) Albumin/Globulin Ratio 0.5 (1.0-1.7) Laboratory Tests Test 11/09/18 06:47 White Blood Count 8.8 x10^3/uL (4.0-11.0) Red Blood Count 2.45 x10^6/uL (3.50-5.40) Hemoglobin 7.9 g/dL (12.0-15.5) Hematocrit 24.0 % (36.0-47.0) Mean Corpuscular Volume 98 fL (79-100) Mean Corpuscular Hemoglobin 32 pg (25-35) Mean Corpuscular Hemoglobin Concent 33 g/dL (31-37) Red Cell Distribution Width 33.8 % (11.5-14.5) Platelet Count 272 x10^3/uL (140-400) Segmented Neutrophils % 70 % (35-66) Band Neutrophils % 2 % (0-9) Lymphocytes % 20 % (24-48) Monocytes % 7 % (0-10) Eosinophils % 1 % (0-5) Nucleated Red Blood Cells 1 Platelet Estimate Adequate (ADEQUATE) Large Platelets Few Polychromasia Present Poikilocytosis Present Anisocytosis Slight Macrocytosis Slight Target Cells Many Sodium Level 140 mmol/L (136-145) Potassium Level 3.3 mmol/L (3.5-5.1) Chloride Level 104 mmol/L (98-107) Carbon Dioxide Level 25 mmol/L (21-32) Anion Gap 11 (6-14) Blood Urea Nitrogen 6 mg/dL (7-20) Creatinine 0.6 mg/dL (0.6-1.0) Estimated GFR (Cockcroft-Gault) 130.2 BUN/Creatinine Ratio 10 (6-20) Glucose Level 89 mg/dL (70-99) Calcium Level 7.4 mg/dL (8.5-10.1) Total Bilirubin 7.1 mg/dL (0.2-1.0) Aspartate Amino Transf (AST/SGOT) 139 U/L (15-37) Alanine Aminotransferase (ALT/SGPT) 24 U/L (14-59) Alkaline Phosphatase 448 U/L (46-116) Total Protein 6.5 g/dL (6.4-8.2) Albumin 2.1 g/dL (3.4-5.0) Albumin/Globulin Ratio 0.5 (1.0-1.7) Medications Current Medications Aspirin (Children'S Aspirin) 324 mg 1X ONCE PO Last administered on 11/04/18 19:55; Start 11/04/18 at 20:00; Stop 11/04/18 at 20:01; Status DC Sodium Chloride 1,000 ml @ 1,000 mls/hr Q1H IV Last administered on 11/04/18 19:55; Start 11/04/18 at 20:00; Stop 11/04/18 at 20:59; Status DC Ketorolac Tromethamine (Toradol 30mg Vial) 30 mg 1X ONCE IV Last administered on 11/04/18at 19:55; Start 11/04/18 at 20:00; Stop 11/04/18 at 20:01; Status DC Magnesium Sulfate 50 ml @ 25 mls/hr 1X ONCE IV Last administered on 11/04/18at 21:10; Start 11/04/18 at 21:00; Stop 11/04/18 at 22:59; Status DC Iohexol (Omnipaque 350 Mg/ml) 100 ml 1X ONCE IV Last administered on 11/04/18at 21:31; Start 11/04/18 at 21:15; Stop 11/04/18 at 21:16; Status DC Info (CONTRAST GIVEN -- Rx MONITORING) 1 each PRN DAILY PRN MC SEE COMMENTS; Start 11/04/18 at 21:00; Stop 11/06/18 at 20:59; Status DC Ondansetron HCl (Zofran) 4 mg PRN Q8HRS PRN IV NAUSEA/VOMITING; Start 11/05/18 at 00:00; Stop 11/05/18 at 23:59; Status DC Morphine Sulfate (Morphine Sulfate) 4 mg PRN Q2HR PRN IV PAIN Last administered on 11/05/18at 23:17; Start 11/05/18 at 00:00; Stop 11/05/18 at 23:59; Status DC Sodium Chloride 1,000 ml @ 100 mls/hr Q10H IV Last administered on 11/05/18at 03:32; Start 11/04/18 at 23:55; Stop 11/05/18 at 11:09; Status DC Nitroglycerin (Nitrostat) 0.4 mg PRN Q5MIN PRN SL CHEST PAIN; Start 11/05/18 at 00:00; Stop 11/05/18 at 23:59; Status DC Albuterol/ Ipratropium (Duoneb) 3 ml RTQID NEB Last administered on 11/06/18at 07:12; Start 11/05/18 at 08:00; Stop 11/06/18 at 07:59; Status DC Magnesium Sulfate 50 ml @ 25 mls/hr 1X ONCE IV Last administered on 11/05/18at 11:04; Start 11/05/18 at 11:00; Stop 11/05/18 at 12:59; Status DC Acetaminophen/ Hydrocodone Bitart (Lortab 5/325) 1 tab PRN Q4HRS PRN PO MODERATE, SEVERE PAIN Last administered on 11/08/18at 23:55; Start 11/05/18 at 20:00 Lactulose (Lactulose) 20 gm TID PO Last administered on 11/06/18at 20:54; Start 11/06/18 at 09:00 Potassium Chloride (Klor-Con) 40 meq 1X ONCE PO Last administered on 11/06/18at 09:47; Start 11/06/18 at 09:00; Stop 11/06/18 at 09:01; Status DC Potassium Chloride/Water 100 ml @ 100 mls/hr Q1H IV Last administered on 11/06/18at 09:51; Start 11/06/18 at 09:00; Stop 11/06/18 at 10:59; Status DC Doxycycline Hyclate (Vibra-Tab) 100 mg BID PO Last administered on 11/08/18at 2 0:46; Start 11/06/18 at 11:00 Albuterol/ Ipratropium (Duoneb) 3 ml RTQID NEB Last administered on 11/08/18at 19:48; Start 11/06/18 at 12:00 Ondansetron HCl (Zofran) 4 mg PRN Q6HRS PRN IV NAUSEA/VOMITING; Start 11/06/18 at 11:45 Magnesium Sulfate/ Dextrose 100 ml @ 25 mls/hr 1X ONCE IV Last administered on 11/06/18at 15:03; Start 11/06/18 at 11:45; Stop 11/06/18 at 15:44; Status DC Azithromycin 500 mg/Sodium Chloride 250 ml @ 250 mls/hr Q24H IV Last administered on 11/06/18at 19:45; Start 11/06/18 at 18:00; Stop 11/07/18 at 16:05; Status DC Potassium Chloride/Water 100 ml @ 100 mls/hr Q1H IV Last administered on 11/07/18at 10:00; Start 11/07/18 at 09:00; Stop 11/07/18 at 12:59; Status DC Ketorolac Tromethamine (Toradol 30mg Vial) 30 mg PRN Q6HRS PRN IV PAIN Last administered on 11/08/18at 11:05; Start 11/07/18 at 15:00 Acetaminophen (Tylenol) 500 mg PRN Q6HRS PRN PO HEADACHE / TEMP; Start 11/08/18 at 09:00 Acetaminophen/ Codeine Phosphate (Tylenol #3) 1 tab PRN Q6HRS PRN PO MILD PAIN 1-3; Start 11/08/18 at 09:00 Zolpidem Tartrate (Ambien) 5 mg PRN QHS PRN PO INSOMNIA Last administered on 11/08/18at 23:55; Start 11/08/18 at 09:00 Potassium Chloride (Klor-Con) 40 meq 1X ONCE PO Last administered on 11/08/18at 09:16; Start 11/08/18 at 10:00; Stop 11/08/18 at 10:01; Status DC Sodium Chloride 1,000 ml @ 100 mls/hr Q10H IV Last administered on 11/08/18at 20:47; Start 11/08/18 at 09:00 Morphine Sulfate (Morphine Sulfate) 4 mg 1X ONCE IV Last administered on 11/09/18at 08:58; Start 11/09/18 at 09:00; Stop 11/09/18 at 09:01; Status DC Morphine Sulfate (Morphine Sulfate) 4 mg STK-MED ONCE .ROUTE ; Start 11/09/18 at 08:52; Stop 11/09/18 at 08:53; Status DC Active Scripts Active Hydrocodone-Apap 5-325 (Hydrocodone Bit/Acetaminophen) 1 Tab Tablet 1 Tab PO PRN Q4HRS PRN Doxycycline Hyclate 100 Mg Tablet 100 Mg PO BID 7 Days Ventolin Hfa Inhaler (Albuterol Sulfate) 18 Gm Hfa.aer.ad 2 Puff INH Q4HRS Reported Senokot (Sennosides) 8.6 Mg Tablet 8.6 Mg PO PRN BID PRN Tums (Calcium Carbonate) 300 Mg Tab.chew 300 Mg PO PRN Q2HR PRN Gas-X (Simethicone) 62.5 Mg Strip 62.5 Mg PO PRN Q2HR PRN Ibuprofen 400 Mg Tablet 400 Mg PO PRN Q6HRS PRN Vitals/I & O Vital Sign - Last 24 Hours 11/08/18 11/08/18 11/08/18 11/08/18 10:48 11:35 14:52 15:34 Temp 98.0 98.0 98.0 98.0 Pulse 100 94 Resp 18 18 B/P (MAP) 113/71 (85) 115/78 (90) Pulse Ox 96 96 O2 Delivery Room Air Room Air Room Air Room Air 11/08/18 11/08/18 11/08/18 11/08/18 19:00 19:36 19:50 22:47 Temp 98.2 98.0 98.2 98.0 Pulse 90 111 Resp 18 20 B/P (MAP) 120/74 (89) 118/69 (85) Pulse Ox 97 100 96 O2 Delivery Room Air Room Air Room Air Room Air O2 Flow Rate 3.0 3.0 11/08/18 11/09/18 11/09/18 11/09/18 23:55 00:55 03:00 07:00 Temp 98.8 98.5 98.8 98.5 Pulse 111 91 Resp 20 20 19 16 B/P (MAP) 93/69 (77) 115/70 (85) Pulse Ox 99 93 O2 Delivery Room Air Room Air Room Air O2 Flow Rate 3.0 11/09/18 08:58 Resp 22 Intake and Output 11/08/18 11/08/18 11/09/18 14:59 22:59 06:59 Intake Total 300 ml 1300 ml 0 ml Balance 300 ml 1300 ml 0 ml MELANIE PIEDRA MD Nov 09, 2018 10:22
[2018-11-09] MEDS: DOXYCYCLINE HYCLATE 100 MG TABLET PO SCH (10:41)
[2018-11-09] MEDS: LACTULOSE 20 GM/30 ML SOLUTION. PO SCH (10:41)
[2018-11-09] MEDS: IV NORMAL SALINE 1000ML BAG 1,000 ML IV SCH (10:42)
[2018-11-09] MEDS: HYDROcodone/APAP 5/325MG 1 TAB TABLET PO PRN (10:45)
[2018-11-09 11:00] VITALS: BP 118/72
--- NOTE | 2018-11-09 11:06 | RAD ---
Exam performed: Nuclear medicine hepatobiliary scan. HISTORY: Patient is a heavy alcohol user, jaundice, elevated bilirubin. DATE OF SERVICE: 11/09/2018. Comparison made to a limited abdominal ultrasound from 11/04/2018. Discussion: Patient was administered 5.5 mCi of industrial machine system technician 90 [id number] Choletec and sequential images of the abdomen are obtained. There is heterogeneous uptake of radiotracer into enlarged liver. There is some excretion in the gallbladder at 30 minutes with mild activity in the small bowel. Patient was administered 4 mg morphine at 60 minutes into the scan which demonstrates progressive excretion in the gallbladder. Some activity is seen in the small bowel. IMPRESSION: Enlarged liver with slow filling of the gallbladder post morphine augmentation. There is some excretion of the small bowel. The study is grossly normal. Electronically signed by: Tammy Montaño MD (11/09/2018 11:03 AM) [facility]
[2018-11-09] MEDS: IPRATRPIUM/ALBUTEROL 0.5/2.5MG 3 ML NEBU. NEB SCH ×2 (11:49→11:55)
[2018-11-09] MEDS ORDERED: ALBU2.5V8 INH (12:50)
--- NOTE | 2018-11-09 13:37 | NUR ---
Discharge Note: KIMBERLY DOZIER DARRELL Discharge instructions and discharge home medications reviewed with Patient and a copy given. All questions have been answered and understanding verbalized. The following instructions and handouts were given: Discharge Instructions, Patient Teaching, Prescriptions Discontinued lines and drains: PIV Right Arm removed, Catheter intact. Patient discharged to Home with Self-Care via Private Vehicle
--- NOTE | 2018-11-09 14:20 | PDOC3 ---
Discharge Summary Visit Information Date of Admission: Nov 05, 2018 Date of Discharge: Nov 09, 2018 Admitting Diagnosis Comment: Cough, Mycoplasma positive Vomiting abdominal pain-resolved Jaundice, transaminitis Hepatic steatosis Chronic constipation History seizure disorder-chronic stable COPD-chronic stable Hypokalemia hypomagnesemia corrected Anemia of chronic disease Poor appetite Final Diagnosis Problems Medical Problems: (1) Chest pain Status: Acute (2) Dyspnea Status: Acute (3) Elevated transaminase level Status: Acute (4) Hyperbilirubinemia Status: Acute Brief Hospital Course Allergies Allergies Coded Allergies Type Severity Reaction Last Updated Verified No Known Drug Allergies 03/28/16 No Vital Signs Vital Signs Date Time Temp Pulse Resp B/P (MAP) Pulse Ox O2 Delivery O2 Flow Rate FiO2 11/09/18 11:49 99 Room Air 11/09/18 11:45 16 11/09/18 11:00 98.0 98 118/72 (87) 98.0 11/09/18 09:28 3.0 Lab Results Laboratory Tests Test 11/08/18 05:20 11/09/18 06:47 White Blood Count 10.0 x10^3/uL (4.0-11.0) 8.8 x10^3/uL (4.0-11.0) Red Blood Count 2.46 x10^6/uL (3.50-5.40) 2.45 x10^6/uL (3.50-5.40) Hemoglobin 7.9 g/dL (12.0-15.5) 7.9 g/dL (12.0-15.5) Hematocrit 24.2 % (36.0-47.0) 24.0 % (36.0-47.0) Mean Corpuscular Volume 98 fL (79-100) 98 fL (79-100) Mean Corpuscular Hemoglobin 32 pg (25-35) 32 pg (25-35) Mean Corpuscular Hemoglobin Concent 33 g/dL (31-37) 33 g/dL (31-37) Red Cell Distribution Width 34.7 % (11.5-14.5) 33.8 % (11.5-14.5) Platelet Count 266 x10^3/uL (140-400) 272 x10^3/uL (140-400) Neutrophils (%) (Auto) 52 % (31-73) Lymphocytes (%) (Auto) 36 % (24-48) Monocytes (%) (Auto) 11 % (0-9) Eosinophils (%) (Auto) 1 % (0-3) Basophils (%) (Auto) 0 % (0-3) Neutrophils # (Auto) 5.3 x10^3/uL (1.8-7.7) Lymphocytes # (Auto) 3.6 x10^3/uL (1.0-4.8) Monocytes # (Auto) 1.1 x10^3/uL (0.0-1.1) Eosinophils # (Auto) 0.1 x10^3/uL (0.0-0.7) Basophils # (Auto) 0.0 x10^3/uL (0.0-0.2) Sodium Level 140 mmol/L (136-145) 140 mmol/L (136-145) Potassium Level 3.1 mmol/L (3.5-5.1) 3.3 mmol/L (3.5-5.1) Chloride Level 101 mmol/L (98-107) 104 mmol/L (98-107) Carbon Dioxide Level 24 mmol/L (21-32) 25 mmol/L (21-32) Anion Gap 15 (6-14) 11 (6-14) Blood Urea Nitrogen 6 mg/dL (7-20) 6 mg/dL (7-20) Creatinine 0.7 mg/dL (0.6-1.0) 0.6 mg/dL (0.6-1.0) Estimated GFR (Cockcroft-Gault) 109.0 130.2 Glucose Level 109 mg/dL (70-99) 89 mg/dL (70-99) Calcium Level 7.5 mg/dL (8.5-10.1) 7.4 mg/dL (8.5-10.1) Segmented Neutrophils % 70 % (35-66) Band Neutrophils % 2 % (0-9) Lymphocytes % 20 % (24-48) Monocytes % 7 % (0-10) Eosinophils % 1 % (0-5) Nucleated Red Blood Cells 1 Platelet Estimate Adequate (ADEQUATE) Large Platelets Few Polychromasia Present Poikilocytosis Present Anisocytosis Slight Macrocytosis Slight Target Cells Many BUN/Creatinine Ratio 10 (6-20) Total Bilirubin 7.1 mg/dL (0.2-1.0) Aspartate Amino Transf (AST/SGOT) 139 U/L (15-37) Alanine Aminotransferase (ALT/SGPT) 24 U/L (14-59) Alkaline Phosphatase 448 U/L (46-116) Total Protein 6.5 g/dL (6.4-8.2) Albumin 2.1 g/dL (3.4-5.0) Albumin/Globulin Ratio 0.5 (1.0-1.7) Laboratory Tests Test 11/09/18 06:47 White Blood Count 8.8 x10^3/uL (4.0-11.0) Red Blood Count 2.45 x10^6/uL (3.50-5.40) Hemoglobin 7.9 g/dL (12.0-15.5) Hematocrit 24.0 % (36.0-47.0) Mean Corpuscular Volume 98 fL (79-100) Mean Corpuscular Hemoglobin 32 pg (25-35) Mean Corpuscular Hemoglobin Concent 33 g/dL (31-37) Red Cell Distribution Width 33.8 % (11.5-14.5) Platelet Count 272 x10^3/uL (140-400) Segmented Neutrophils % 70 % (35-66) Band Neutrophils % 2 % (0-9) Lymphocytes % 20 % (24-48) Monocytes % 7 % (0-10) Eosinophils % 1 % (0-5) Nucleated Red Blood Cells 1 Platelet Estimate Adequate (ADEQUATE) Large Platelets Few Polychromasia Present Poikilocytosis Present Anisocytosis Slight Macrocytosis Slight Target Cells Many Sodium Level 140 mmol/L (136-145) Potassium Level 3.3 mmol/L (3.5-5.1) Chloride Level 104 mmol/L (98-107) Carbon Dioxide Level 25 mmol/L (21-32) Anion Gap 11 (6-14) Blood Urea Nitrogen 6 mg/dL (7-20) Creatinine 0.6 mg/dL (0.6-1.0) Estimated GFR (Cockcroft-Gault) 130.2 BUN/Creatinine Ratio 10 (6-20) Glucose Level 89 mg/dL (70-99) Calcium Level 7.4 mg/dL (8.5-10.1) Total Bilirubin 7.1 mg/dL (0.2-1.0) Aspartate Amino Transf (AST/SGOT) 139 U/L (15-37) Alanine Aminotransferase (ALT/SGPT) 24 U/L (14-59) Alkaline Phosphatase 448 U/L (46-116) Total Protein 6.5 g/dL (6.4-8.2) Albumin 2.1 g/dL (3.4-5.0) Albumin/Globulin Ratio 0.5 (1.0-1.7) Brief Hospital Course Ms. Díaz is a 48 old AA female,admitted for cough and poor pO> Mycoplasma positive, treated with doxy by ID< feels better. COurse remarkable for abd pain, some GB Distention but good ef and feeling better so no further pursuance of that pain - could be all from mycoplasma infection HOme today no PT needs 2 notes today Pt seen and examined COnuslt; ID Proc none dispO,; home indep Discharge Information Condition at Discharge: Improved, Stable Disposition/Orders: D/C to Home Scheduled Albuterol Sulfate (Ventolin Hfa Inhaler) 18 Gm Hfa.aer.ad, 2 PUFF INH Q4HRS for FOR ASTHMA, #1 Ref 0 Prescribed by: Rivka Loya APRN on 03/23/18 1800 Doxycycline Hyclate (Doxycycline Hyclate) 100 Mg Tablet, 100 MG PO BID for mycoplasma positive for 7 Days, #14 Prescribed by: MELANIE PIEDRA on 11/09/18 1013 Scheduled PRN Albuterol Sulfate (Proair Hfa Inhaler) 8.5 Gm Hfa.aer.ad, 1 PUFF INH PRN Q6HRS PRN for SHORTNESS OF BREATH for 30 Days, Ref 0 Prescribed by: MELANIE PIEDRA on 11/09/18 1250 Calcium Carbonate (Tums) 300 Mg Tab.chew, 300 MG PO PRN Q2HR PRN for HEARTBURN / GAS, (Reported) Entered as Reported by: Isabel Gauthier on 11/05/18131 Last Action: New Order on 11/05/18131 by Isabel Gauthier Hydrocodone Bit/Acetaminophen (Hydrocodone-Apap 5-325 ) 1 Tab Tablet, 1 TAB PO PRN Q4HRS PRN for MODERATE, SEVERE PAIN, #30 Prescribed by: MELANIE PIEDRA on 11/09/18 1013 Ibuprofen (Ibuprofen) 400 Mg Tablet, 400 MG PO PRN Q6HRS PRN for INFLAMMATION, (Reported) Entered as Reported by: Isabel Gauthier on 11/05/18131 Last Action: New Order on 11/05/18131 by Isabel Gauthier Sennosides (Senokot) 8.6 Mg Tablet, 8.6 MG PO PRN BID PRN for CONSTIPATION, (Reported) Entered as Reported by: Isabel Gauthier on 11/05/18131 Last Action: New Order on 11/05/18131 by Isabel Gauthier Simethicone (Gas-X) 62.5 Mg Strip, 62.5 MG PO PRN Q2HR PRN for GI SYMPTOMS, (Reported) Entered as Reported by: Isabel Gauthier on 11/05/18131 Last Action: New Order on 11/05/18131 by Isabel Gauthier Discontinued Medications Hydrochlorothiazide (Hydrochlorothiazide Tablet) 12.5 Mg Tablet, 2 TAB PO DAILY, #30 Ref 5 (Reported) Entered as Reported by: ASHLYN MONTEMAYOR on 03/29/16435 Last Action: Discontinued on 11/05/18131 by Isabel Gauthier Pantoprazole Sodium (Pantoprazole Sodium ) 40 Mg Tablet.dr, 40 MG PO DAILY, (Reported) Entered as Reported by: ASHLYN MONTEMAYOR on 03/29/16435 Last Action: Discontinued on 11/05/18131 by MELANIE Martin MD Nov 09, 2018 14:20
== END 2018-11-09 12:55 | disposition home or self-care (01) | DRG 869 ==
LOC: ER 19:32 → 2 NORTH 23:42 → 5 SOUTH 11-06 07:31
PROVIDERS: ADMIT Internal Medicine; ATTEND Internal Medicine
DX: A49.3 Mycoplasma infection, unspecified site (principal); E87.6 Hypokalemia; D63.8 Anemia in other chronic diseases classified elsewhere; E66.9 Obesity, unspecified; E78.5 Hyperlipidemia, unspecified; E83.42 Hypomagnesemia; F17.210 Nicotine dependence, cigarettes, uncomplicated; F32.9 Major depressive disorder, single episode, unspecified; R74.0 Nonspecific elevation of levels of transaminase and lactic acid dehydrogenase [LDH]; G40.909 Epilepsy, unspecified, not intractable, without status epilepticus; I10 Essential (primary) hypertension; J43.9 Emphysema, unspecified; K21.9 Gastro-esophageal reflux disease without esophagitis; K58.1 Irritable bowel syndrome with constipation; K76.0 Fatty (change of) liver, not elsewhere classified; R31.0 Gross hematuria; Y90.8 Blood alcohol level of 240 mg/100 ml or more; Z79.899 Other long term (current) drug therapy; Z80.9 Family history of malignant neoplasm, unspecified; Z83.3 Family history of diabetes mellitus; Z86.718 Personal history of other venous thrombosis and embolism; G89.29 Other chronic pain; M10.9 Gout, unspecified; M19.90 Unspecified osteoarthritis, unspecified site; Z98.51 Tubal ligation status
CPT/HCPCS: 36415; 71045; 71275; 76705; 78227; 80048; 80053; 80076; 80307; 81001; 82607; 82977; 83540; 83550; 83690; 83735; 83880; 84443; 84484; 85007; 85025; 85045; 85379; 85610; 86644; 86645; 86705; 86709; 86738; 86803; 87340; 87449; 93005; 93306; 94640; 94760; 96361; 96365; 96366; 96375; 99406; A9537; J0456; J1885; J2270; J3475; J3480; J7030; J7050; J7620; Q9967; 97116; 99285-25